=== PATIENT | female | born 1940 | race Caucasian/White ===

== ENCOUNTER 2020-04-28 20:06 | Emergency (ER) | payer MEDICARE, SELFPAY ==
[2020-04-28 20:07] VITALS: BP 166/85; PULSE 80; RESP 20; TEMP 37; O2SAT 97
--- NOTE | 2020-04-28 20:36 | ED.FALL ---
HPI - Fall General Chief Complaint: Fall Stated Complaint: fall History of Present Illness HPI Narrative: Patient presents after falling while walking her dog. She fell forward and scraped her nose. She said it was bleeding. She is more concerned about the lens that fell out of her glasses. She reports no pain. She had no loss of conscious. She cannot remember her last tetanus shot. She does not take any prescription medication. Her surgical history is hysterectomy. She does not smoke cigarettes, drink alcohol, or do drugs. She does not have a PCP. MD complaint: fall Onset (ago): hour(s) Fall from: standing Place fall occurred: street Loss of consciousness: none Symptoms prior to fall: none Context: tripped/slipped Location of injury: face Related Data Allergies Allergy/AdvReac Type Severity Reaction Status Date / Time oxybutynin [From Ditropan] Allergy Unknown Verified 04/28/20 20:10 Review of Systems Review of Systems: Narrative: CONSTITUTIONAL: Denies fever, chills, or sweats. EYES: Denies visual changes, redness, or discharge. ENT: Denies rhinorrhea, congestion, sore throat, or otalgia. CARDIOVASCULAR: Denies chest pain, palpitations, or edema. RESPIRATORY: Denies cough or dyspnea. GASTROINTESTINAL: Denies abdominal pain, nausea, vomiting, or diarrhea. GENITOURINARY: Denies dysuria or hematuria. SKIN: Denies rash or itching. MUSCULOSKELETAL: Denies back pain, joint pain, or myalgia. NEUROLOGIC: Denies headache, numbness, or weakness. PSYCHIATRIC: Denies anxiety or depression. [facility] Surgical History Surgical History History of hysterectomy Social History Social History (Updated 04/28/20 @ 20:38 by Qian Ahn MD) Smoking status: Never smoker Alcohol intake: never Substance use: never Exam Narrative: Exam Narrative: GENERAL: Well-appearing, well-nourished, and in no acute distress. HEAD: Normocephalic, atraumatic. Petechiae on the forehead. EYES: PERRLA and EOMI. ENT: Nares clear, no rhinorrhea or epistaxis. Mucous membranes moist. Triangular piece of skin missing at the bridge of the nose, abrasions on the rest of the nose. NECK: Supple. CHEST: Clear to auscultation. No respiratory distress. HEART: Regular rate and rhythm. No murmur heard. Normal peripheral pulses. ABDOMEN: Soft, nontender, nondistended, normal active bowel sounds. EXTREMITIES: Normal range of motion. No edema. SKIN: Warm, dry, no rash. NEURO: No focal deficits. Alert and oriented x3. PSYCH: Normal mood and affect. Const: General: no acute distress and alert Orientation/consciousness: patient oriented x3 Course Vital Signs Vital signs: Vital Signs Temperature 98.6 F 04/28/20 20:07 Pulse Rate 80 04/28/20 20:07 Respiratory Rate 20 04/28/20 20:07 Blood Pressure 166/85 H 04/28/20 20:07 Pulse Oximetry 97 04/28/20 20:07 Temperature 98.6 F 04/28/20 20:07 Pulse Rate 80 04/28/20 20:07 Respiratory Rate 04/28/20 20:07 Blood Pressure 166/85 H 04/28/20 20:07 Pulse Oximetry 97 04/28/20 20:07 MDM - Fall Medical Records Attestation: I reviewed the patient's medical records. Discharge Plan Discharge Clinical Impression: Bleeding nose Fall Qualifiers: Encounter type: initial encounter Qualified Code(s): W19.XXXA - Unspecified fall, initial encounter Abrasion of face Qualifiers: Encounter type: initial encounter Qualified Code(s): S00.81XA - Abrasion of other part of head, initial encounter Patient Disposition: Home, Self-Care Condition: Stable Follow-up/Referrals: PHYSICIAN,LINTER DRIER OPERATOR [Primary Care Provider] - Natan Martinez MD [Physician] - (Call make a new patient appointment) Time of Disposition: 20:40
--- NOTE | 2020-04-28 20:37 | PC.NURSE ---
CALL RECEIVED FROM PT SON REBECCA. UPDATES GIVEN. CALL SON WHEN PT READY FOR DC AT [phone]
[2020-04-28] MEDS: TETANUS,DIPHTHERIA,AC PERTUSSIS ADULT (0.5 ML) BOOSTRIX IM (20:48)
[2020-04-28 20:50] VITALS: BP 173/83; PULSE 74; RESP 20; O2SAT 98
[2020-04-28 20:56] VITALS: BP 173/83; PULSE 74; RESP 20; O2SAT 98
== END 2020-04-28 21:08 | disposition home or self-care (01) ==
PROVIDERS: Emergency Provider Emergency Medicine
DX: S00.31XA Abrasion of nose, initial encounter (principal); W01.0XXA Fall on same level from slipping, tripping and stumbling without subsequent striking against object, initial encounter; Y93.K1 Activity, walking an animal; Z23 Encounter for immunization
CPT/HCPCS: 90471; 90715; 99282

== ENCOUNTER 2020-07-03 15:41 | Inpatient (IN) | payer MEDICARE, SELFPAY ==
--- NOTE | ~2020-07-03 | CT_ITS ---
EXAMINATION: CT LE LT wo con DATE: 07/03/2020 19:42 INDICATION: Left thigh injury. TECHNIQUE: Computed tomography (CT) of the left femur was performed without intravenous contrast. Aut omated exposure control and iterative reconstruction technique were employed. The dose-length product was 762.99 mGy-cm. COMPARISON: Left femur radiographs 07/03/2020 FINDINGS: Bone alignment is normal. There is a nondisplaced oblique fracture of lateral patella. Ther e is moderate left knee osteoarthritis. There is a small knee joint effusion. There are subcutaneous hematomas in the anterior left thigh. There is a subcutaneous hematoma anterior and lateral to the pa tella. IMPRESSION: 1. Nondisplaced oblique fracture of patella. 2. Subcutaneous hematomas in the anterior thigh. Subcutaneous hematoma anterior and lateral to the pa tella. 3. Moderate left knee osteoarthritis. 4. Small left knee joint effusion. Reviewed, dictated and finalized at location A. IMPRESSION: 1. Nondisplaced oblique fracture of patella. 2. Subcutaneous hematomas in the anterior thigh. Subcutaneous hematoma anterior and lateral to the patella. 3. Moderate left knee osteoarthritis. 4. Small left knee joint effusion.
--- NOTE | ~2020-07-03 | XR_ITS ---
EXAMINATION: XR femur LT min 2V DATE: 07/03/2020 17:43 INDICATION: Left thigh injury. Swelling. TECHNIQUE: 2 views of left femur on 4 radiographs were obtained. COMPARISON: None. FINDINGS: Bone alignment is normal. No fracture. There is mild left hip osteoarthritis. Left knee dem onstrates moderate osteoarthritis of the patellofemoral compartment and mild osteoarthritis of medial and lateral compartments. No knee joint effusion. IMPRESSION: 1. Polyarticular osteoarthritis. Reviewed, dictated and finalized at location A.
--- NOTE | ~2020-07-03 | CT_ITS ---
EXAMINATION: CT brain wo con DATE: 07/03/2020 19:42 INDICATION: Head injury. TECHNIQUE: Computed tomography (CT) of the head was performed without intravenous contrast. The mA wa s adjusted according to patient size. Iterative reconstruction technique was employed. The dose-lengt h product was 605.33 mGy-cm. 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 There are scattered areas of low attenuation in the cerebral wh ite matter. There is no intracranial hemorrhage, acute infarction, or abnormal intracranial mass lesi on. There is ex vacuo dilatation of frontal horn of left lateral ventricle. The orbits are normal. Th ere is mild mucosal thickening in the ethmoid sinuses. The mastoid air cells are normal. IMPRESSION: 1. 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 2. Mild nonspecific cerebral white matter disease, which likely represents chronic small vessel ische nithya disease. Reviewed, dictated and finalized at location A. IMPRESSION: 1. 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 2. 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
[2020-07-03 16:45] VITALS: BP 175/91; PULSE 74; RESP 18; TEMP 36.6; O2SAT 99
[2020-07-03 18:02] VITALS: BP 166/94; PULSE 72; RESP 14; O2SAT 97
--- NOTE | 2020-07-03 18:59 | ED.FALL ---
HPI - Fall General Chief Complaint: Fall Stated Complaint: FALL AFTER TRIPPING ON ROCKS Time Seen by Provider: 07/03/20 18:58 Source: patient Mode of arrival: ambulatory Limitations: no limitations History of Present Illness HPI Narrative: Patient is a 79-year-old female who presents for evaluation of left leg pain after a fall. Patient states that she fell earlier today, tripping over some rocks. Patient fell onto her left side. She presents for evaluation of left leg swelling to the thigh and knee. She is able to move it, she does endorse some pain that is dull, aching in nature. Mild bruising and swelling that is present. She denies any numbness. No severe pain. She denies hip pain. Patient denies hitting her head but does have an abrasion to her nasal bridge. She denies any neck pain or vision changes. Patient denies any chest pain, palpitations, lightheadedness prior to the fall. Patient denies anticoagulation. Related Data Home Medications Medication Instructions Recorded Confirmed No Home Medications 07/03/20 07/03/20 Allergies Allergy/AdvReac Type Severity Reaction Status Date / Time oxybutynin [From Ditropan] Allergy Unknown Verified 07/03/20 18:03 Review of Systems Review of Systems: Narrative: CONSTITUTIONAL: Denies fever, chills, or sweats. EYES: Denies visual changes ENT: Denies rhinorrhea, congestion CARDIOVASCULAR: Denies chest pain, palpitations, reports left leg swelling and pain RESPIRATORY: Denies cough or dyspnea. GASTROINTESTINAL: Denies abdominal pain, nausea SKIN: Denies rash or itching. Reports swelling and bruising to left leg. MUSCULOSKELETAL: Denies back pain, reports left thigh pain NEUROLOGIC: Denies headache, numbness, or weakness. [facility] Surgical History Surgical History History of hysterectomy Social History Social History Smoking status: Never smoker Alcohol intake: never Substance use: never Gender identity (if verbalized by the patient): Female Exam Narrative: Exam Narrative: GENERAL: Awake, alert, conversant HEAD: Normocephalic, abrasion to nasal bridge EYES: 2+ PERRLA and EOMI. ENT: Nares clear, no rhinorrhea or epistaxis. Mucous membranes moist. NECK: Supple. No cervical spine tenderness. No midline step-offs or deformities. CHEST: No respiratory distress, breathing even and non labored. No chest wall tenderness or crepitus. No ecchymoses. HEART: Regular rate, sinus rhythm ABDOMEN:Non distended, non tender EXTREMITIES: Decreased range of motion of the left lower extremity due to edema, ecchymosis especially in the anterior compartment of the left thigh. Ecchymosis overlying the left knee. Patient has some active flexion at the left knee but this is limited due to pain and edema. Intact sensation distally. DP pulse 2+. SKIN: Warm, dry NEURO:No focal deficits. Alert and oriented x3 Course Vital Signs Vital signs: Vital Signs Temperature 36.6 C 07/03/20 16:45 Pulse Rate 74 07/03/20 16:45 Respiratory Rate 18 07/03/20 16:45 Blood Pressure 175/91 H 07/03/20 16:45 Pulse Oximetry 99 07/03/20 16:45 Temperature 36.6 C 07/03/20 16:45 Pulse Rate 72 07/03/20 18:02 Respiratory Rate 14 07/03/20 18:02 Blood Pressure 178/88 H 07/03/20 20:36 Pulse Oximetry 97 07/03/20 18:02 Procedures Other Procedure Procedure 1: Other Procedure: Compartment measurement, left anterior thigh Left anterior thigh compartment was prepped in a sterile fashion, and [place] kit was utilized to evaluate compartment pressure. Left anterior thigh compartment measures at 74. No brisk bleeding from the site. Minimal pain. No anesthetic was utilized after shared decision-making with patient. Patient tolerated procedure well without any complications. A dressing was applied to the site. MDM - Fall MDM Narrative Medical decision glenis
[2020-07-03 19:33] LABS: Basophils Percent Auto 0.4 % (0.2-1.2); Eosinophils Absolute Auto 0.2 K/mm3 (0-0.3); Hematocrit 41.1 % (37.0-47.0); Hemoglobin 13.6 g/dL (12.0-15.0); Immature Granulocyte Absolute 0.03 K/mm3 (0.00-0.031); Immature Granulocyte Percent A 0.4 % (0-0.5); Lymphocytes Absolute Auto 1.49 K/mm3 (0.9-3.2); Lymphocytes Percent Auto 17.5 % (18.3-44.2); Mean Corpuscular HGB Conc 33.1 g/dl (32-36); Mean Corpuscular Hemoglobin 30.4 pg (26-34); Mean Corpuscular Volume 91.9 fl (80-100); Mean Platelet Volume 11.7 fl (7.4-10.4); Monocytes Absolute Auto 0.9 K/mm3 (0.1-0.6); Neutrophils Absolute Auto 5.9 K/mm3 (1.3-6.7); Neutrophils Percent Auto 68.7 % (45.5-73.1); Platelet Count Result 208 k/mm3 (150-375); Red Blood Count 4.47 M/mm3 (4.2-5.4); Red Cell Distribution Width 13.7 % (11.5-14.5); White Blood Count 8.5 K/mm3 (4.5-10.0)
[2020-07-03 19:42] LABS: Prothrombin Time 12.8 Seconds (11.1-14.7)
[2020-07-03 19:52] LABS: Anion Gap 6 mmol/L (8-16); Blood Urea Nitrogen 17 mg/dL (7-17); Calcium 9.3 mg/dL (8.4-10.2); Carbon Dioxide 28 mmol/L (22-30); Chloride 104 mmol/L (98-107); Creatine Kinase 62 U/L (30-135); Estimated CRCL calculation 38 ml/min; Estimated Glomerular Filt Rate 54; Glucose 116 mg/dL (65-105); Potassium 4.4 mmol/L (3.4-5.0); Sodium 138 mmol/L (137-145)
[2020-07-03 20:36] VITALS: BP 178/88
[2020-07-03 21:33] VITALS: BP 168/83; PULSE 68; RESP 16; O2SAT 98
[2020-07-03] MEDS: TETANUS,DIPHTHERIA,AC PERTUSSIS ADULT (0.5 ML) BOOSTRIX IM (21:34)
[2020-07-03 21:56] VITALS: BP 189/93; PULSE 74; RESP 16; TEMP 36.6; O2SAT 100; BMI 29.5
[2020-07-03] MEDS: SODIUM CHLORIDE 0.9% IV 1,000 ML 125 ML IV CONT (21:57)
[2020-07-03 22:00] VITALS: BP 189/93; PULSE 74; RESP 16; TEMP 36.6; O2SAT 100
--- NOTE | 2020-07-03 22:53 | PC.NURSE ---
This patient, Dominique Lee, was admitted to 2 Medical Room 260-. Patient/family oriented to hospital policies and general routines including ID bracelet, bed and alarms, visiting hours, pain management, procedures, bathroom and other care routines, personal items, smoking policy, room service/diet, and visiting hours. Valuables list has been completed. Information on how to activate the Rapid Response Team has been discussed. Patient/Family are encouraged to report perceived risks to care and to ask questions if they do not understand what they are told or what they should do.
[2020-07-04 05:36] LABS: Basophils Percent Auto 0.6 % (0.2-1.2); Eosinophils Absolute Auto 0.2 K/mm3 (0-0.3); Eosinophils Percent Auto 2.4 % (0-4.4); Hematocrit 35.9 % (37.0-47.0); Hemoglobin 11.8 g/dL (12.0-15.0); Immature Granulocyte Absolute 0.03 K/mm3 (0.00-0.031); Immature Granulocyte Percent A 0.4 % (0-0.5); Lymphocytes Absolute Auto 1.82 K/mm3 (0.9-3.2); Lymphocytes Percent Auto 25.7 % (18.3-44.2); Mean Corpuscular HGB Conc 32.9 g/dl (32-36); Mean Corpuscular Volume 91.3 fl (80-100); Mean Platelet Volume 11.5 fl (7.4-10.4); Monocytes Absolute Auto 1.1 K/mm3 (0.1-0.6); Monocytes Percent Auto 15.8 % (2.6-8.5); Neutrophils Absolute Auto 3.9 K/mm3 (1.3-6.7); Neutrophils Percent Auto 55.1 % (45.5-73.1); Platelet Count Result 187 k/mm3 (150-375); Red Blood Count 3.93 M/mm3 (4.2-5.4); Red Cell Distribution Width 13.5 % (11.5-14.5); White Blood Count 7.1 K/mm3 (4.5-10.0)
[2020-07-04 05:46] VITALS: BP 174/69; PULSE 73; RESP 18; TEMP 36.6; O2SAT 96
--- NOTE | 2020-07-04 07:05 | PM.IMHP ---
H&P: HPI History of Present Illness Date/Time: 07/04/20 07:05 Chief complaint: Left anterior thigh compartment syndrome Narrative: Dominique Lee is a 79 year old female Who fell onto her left knee yesterday at her assisted living facility. She had a mild abrasion on the front of the knee. She had pain with weight-bearing and was noted to have swelling in the thigh. She is brought to the emergency room. Initial radiographs were negative. Due to the amount of swelling she had a CT scan which showed anterior thigh hematoma as well as a nondisplaced transverse fracture of the patella. Due to the swelling compartment pressure was evaluated in the emergency room. Her vital signs were noted to be stable and she was relatively comfortable with minimal pain medication. She was admitted for further observation given the amount of swelling. Overnight she has been comfortable. She has slept soundly most of the night per the nurse's report. She was seen and examined this morning at 6:30 a.m.. She complains of pain left leg but otherwise appears alert and oriented and comfortable. She denies any other injury at the time of her fall. She denies numbness or tingling in left lower extremity. She denies any prior problems with her knee. She is a full-time resident at a memory care assisted living facility. She has a son who lives nearby. Review of Systems Constitutional: Constitutional: Denies fever(s) Eyes: Eyes: Denies blurry vision ENT: Reports Normal hearing present Cardiovascular: Cardiovascular: Denies chest pain and Denies dyspnea Respiratory: Respiratory: Denies dyspnea and Denies wheezing Gastrointestinal: Gastrointestinal: Denies abdominal pain Genitourinary: Genitourinary: Denies urinary urgency Musculoskeletal: Musculoskeletal: Reports as per HPI and Denies numbness Integumentary/Breasts: Skin/Breast: Denies changing lesions and Denies sores Neurologic: Reports Normal hearing present, Denies behavioral changes, Denies confusion, Denies numbness and Denies convulsions Psychiatric: Psychiatric: Denies behavioral changes, Denies confusion and Denies hallucinations Endocrine: Endocrine: Denies heat intolerance Hematologic/Lymphatic: Hematologic/Lymphatic: Denies easy bleeding Allergic/Immunologic: Allergic/Immunologic: Denies wheezing PMFSH Surgical History Surgical History History of hysterectomy Social History Social History Smoking status: Never smoker Alcohol intake: never Substance use: never Gender identity (if verbalized by the patient): Female Spiritual care concerns: No Meds Home Medications and Allergies Allergies Allergy/AdvReac Type Severity Reaction Status Date / Time oxybutynin [From Ditropan] Allergy Unknown Verified 07/03/20 18:03 Vital Signs Vital Signs - 24 hr 07/03/20 16:45 07/03/20 18:02 07/03/20 20:36 Temperature 97.8 F Pulse Rate 74 72 Respiratory Rate 18 14 Blood Pressure 175/91 H 166/94 H 178/88 H Pulse Oximetry 99 97 07/03/20 21:33 07/03/20 21:56 07/03/20 22:00 Temperature 97.9 F 97.9 F Pulse Rate 68 74 74 Respiratory Rate 16 16 16 Blood Pressure 168/83 H 189/93 H 189/93 H Pulse Oximetry 98 100 100 07/04/20 05:46 Temperature 97.8 F Pulse Rate 73 Respiratory Rate 18 Blood Pressure 174/69 H Pulse Oximetry 96 Exam Const: General: healthy appearing; No in distress or confusion Orientation/consciousness: oriented to person, oriented to place, oriented to time and No confusion HENMT: Head: normal to inspection, normocephalic and atraumatic Eyes: Conjunctivae: conjunctivae normal Sclera: sclerae normal Neck: Neck: supple and nontender Resp: Effort & Inspection: normal respiratory effort and no audible wheezes Cardio: Rate: regular rate Rhythm: regular rhythm Skin: General skin exam: no rashes or lesions noted Neuro:
--- NOTE | 2020-07-04 07:43 | PC.NURSE ---
C[facility] [place] contacted- will send an updated medication list
[2020-07-04] MEDS: ACETAMINOPHEN 325 MG TABLET 650 MG PO ×2 (10:30→15:39)
[2020-07-04 14:00] VITALS: BP 160/79; PULSE 73; RESP 17; TEMP 36.9; O2SAT 100
[2020-07-04] MEDS: SOLIFENACIN 5 MG TABLET PO (18:49)
[2020-07-04] MEDS: MIRABEGRON 50 MG ER TABLET PO (18:49)
[2020-07-04 22:00] VITALS: BP 150/86; PULSE 78; RESP 18; TEMP 36.3; O2SAT 100
[2020-07-05] MEDS: ONDANSETRON INJ 4 MG/2 ML VIAL IV PUSH (05:17)
[2020-07-05 05:54] VITALS: BP 155/67; PULSE 55; RESP 20; TEMP 36.6; O2SAT 100
--- NOTE | 2020-07-05 07:45 | PM.PNORT ---
Progress Note: A&P Assessment and Plan (1) Compartment syndrome of left lower extremity: Qualifiers: Encounter type: initial encounter Qualified Code(s): T79.A22A - Traumatic compartment syndrome of left lower extremity, initial encounter Code(s): T79.A22A - Traumatic compartment syndrome of left lower extremity, initial encounter Status: Acute Assessment and Plan: Still with significant swelling. Edema control Continue to monitor thigh for possible surgical need (2) Fracture, patella: Qualifiers: Encounter type: initial encounter Fracture alignment: nondisplaced Fracture morphology: transverse Fracture type: closed Laterality: left Qualified Code(s): S82.035A - Nondisplaced transverse fracture of left patella, initial encounter for closed fracture Code(s): S82.009A - Unspecified fracture of unspecified patella, initial encounter for closed fracture Status: Acute Assessment and Plan: PT/OT, protected weight Knee immobilizer when up. Subjective Subjective Date/Time Seen: 07/05/20 07:45 awake and alert. LT thigh pain Exam Const: General: healthy appearing; No in distress or confusion Orientation/consciousness: oriented to person, oriented to place, oriented to time and No confusion HENMT: Head: normal to inspection, normocephalic and atraumatic Eyes: Conjunctivae: conjunctivae normal Sclera: sclerae normal Neck: Neck: supple and nontender Resp: Effort & Inspection: normal respiratory effort and no audible wheezes Cardio: Rate: regular rate Rhythm: regular rhythm Skin: General skin exam: no rashes or lesions noted Neuro: General: oriented to person, oriented to place, oriented to time and No confusion Extrem: Right upper extremity: normal to inspection Left upper extremity: normal to inspection Left lower extremity: hip/thigh, knee, ankle and foot Psych: Affect: normal affect Objective Data Vital Signs Vital Signs: Vital Signs - 24 hr 07/04/20 14:00 07/04/20 22:00 07/05/20 05:54 Temperature 98.5 F 97.3 F L 97.8 F Pulse Rate 73 78 55 L Respiratory Rate 17 18 20 Blood Pressure 160/79 H 150/86 H 155/67 H Pulse Oximetry 100 100 100 Intake/Output Intake/Output: Intake & Output 07/02/20 07/03/20 07/04/20 07/05/20 23:59 23:59 23:59 23:59 Intake Total 1350 120 Output Total 300 850 Balance 1050 -730 Meds/Results Medications: Active Medications Generic Name Dose Route Start Last Admin Trade Name Freq PRN Reason Stop Dose Admin Acetaminophen 650 mg 07/03/20 20:36 07/04/20 15:39 Tylenol Tablet PO 650 mg Q4H PRN Administration Mild Pain (1-3) or Fever Aspirin 81 mg 07/05/20 09:00 Aspirin Chewable PO DAILY [facility] Atorvastatin Calcium 20 mg 07/05/20 09:00 Lipitor PO DAILY [facility] Duloxetine HCl 90 mg 07/05/20 09:00 Cymbalta PO DAILY [facility] Hydralazine HCl 5 mg 07/04/20 18:01 Apresoline Tablet PO TID PRN systolic BP greater than 160 Mirabegron 50 mg 07/04/20 18:25 07/04/20 18:49 Myrbetriq PO 50 mg DAILY@1600 LUIS M Administration Ondansetron HCl 4 mg 07/03/20 20:36 07/05/20 05:17 Zofran Inj IV PUSH 4 mg Q4H PRN Administration Nausea Solifenacin 5 mg 07/04/20 18:05 07/04/20 18:49 Vesicare PO 5 mg DAILY@1600 LUIS M Administration Radiology Results: ITS Impressions Femur X-Ray 07/03/20 17:44 IMPRESSION: 1. Polyarticular osteoarthritis. Head CT 07/03/20 19:42 IMPRESSION: 1. 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 2. Mild nonspecific cerebral white matter disease, which likely represents chronic small vessel ischemic disease. Lower Extremity CT 07/03/20 19:45 IMPRESSION: 1. Nondisplaced oblique fracture of patella. 2. Subcutaneous hematomas in the anterior thigh. Subcutaneous hematoma anterior and lateral to the patella. 3. Mode
[2020-07-05] MEDS: ASPIRIN 81 MG CHEWABLE TABLET PO (08:25)
[2020-07-05] MEDS: DULoxetine HCL 30 MG CAPSULE.DR 90 MG PO (08:26)
[2020-07-05] MEDS: ATORVASTATIN 20 MG TABLET PO (08:26)
[2020-07-05] MEDS: ACETAMINOPHEN 325 MG TABLET 650 MG PO (11:18)
[2020-07-05 14:00] VITALS: BP 165/76; PULSE 84; RESP 16; TEMP 36.9; O2SAT 95
[2020-07-05] MEDS: hydrALAZINE 5 MG TABLET PO (14:40)
[2020-07-05] MEDS: MIRABEGRON 50 MG ER TABLET PO (16:55)
[2020-07-05] MEDS: SOLIFENACIN 5 MG TABLET PO (16:55)
[2020-07-05 20:00] VITALS: PULSE 83; RESP 16; O2SAT 97
[2020-07-05 21:44] VITALS: BP 187/84; PULSE 83; RESP 16; TEMP 36.7; O2SAT 97
[2020-07-06 06:00] VITALS: BP 167/72; PULSE 81; RESP 16; TEMP 36.9; O2SAT 94
[2020-07-06] MEDS: ATORVASTATIN 20 MG TABLET PO (08:10)
[2020-07-06] MEDS: ASPIRIN 81 MG CHEWABLE TABLET PO (08:10)
[2020-07-06] MEDS: DULoxetine HCL 30 MG CAPSULE.DR 90 MG PO (08:10)
--- NOTE | 2020-07-06 08:40 | PM.PNORT ---
Progress Note: A&P Assessment and Plan (1) Compartment syndrome of left lower extremity: Qualifiers: Encounter type: initial encounter Qualified Code(s): T79.A22A - Traumatic compartment syndrome of left lower extremity, initial encounter Code(s): T79.A22A - Traumatic compartment syndrome of left lower extremity, initial encounter Status: Acute Assessment and Plan: Swelling stable. Edema control Continue to monitor thigh for possible surgical need (2) Fracture, patella: Qualifiers: Encounter type: initial encounter Fracture alignment: nondisplaced Fracture morphology: transverse Fracture type: closed Laterality: left Qualified Code(s): S82.035A - Nondisplaced transverse fracture of left patella, initial encounter for closed fracture Code(s): S82.009A - Unspecified fracture of unspecified patella, initial encounter for closed fracture Status: Acute Assessment and Plan: PT/OT, protected weight Knee immobilizer when up. (3) Hypertension: Code(s): I10 - Essential (primary) hypertension Status: Acute Assessment and Plan: Elevated systolic pressure since the emergency room. Started on antihypertensive medication, hydralazine. Mild improvement noted. Plan to contact primary care for provider, for further treatment and follow-up. (4) Urinary hesitancy: Code(s): R39.11 - Hesitancy of micturition Status: Acute Assessment and Plan: Unable to void yesterday. Elevated residual volume on bladder scan. Leone catheter placed with good output. We will remove Leone catheter and attempt voiding trial today. Subjective Subjective Date/Time Seen: 07/06/20 08:40 Patient awake oriented to self. Moderate pain left thigh. unable to void yesterday. Review of Systems Constitutional: Constitutional: Denies fever(s) Eyes: Eyes: Denies blurry vision ENT: Reports Normal hearing present Cardiovascular: Cardiovascular: Denies chest pain and Denies dyspnea Respiratory: Respiratory: Denies dyspnea and Denies wheezing Gastrointestinal: Gastrointestinal: Denies abdominal pain Genitourinary: Genitourinary: Denies urinary urgency Musculoskeletal: Musculoskeletal: Reports as per HPI and Denies numbness Integumentary/Breasts: Skin/Breast: Denies changing lesions and Denies sores Neurologic: Reports Normal hearing present, Denies behavioral changes, Denies confusion, Denies numbness and Denies convulsions Psychiatric: Psychiatric: Denies behavioral changes, Denies confusion and Denies hallucinations Endocrine: Endocrine: Denies heat intolerance Hematologic/Lymphatic: Hematologic/Lymphatic: Denies easy bleeding Allergic/Immunologic: Allergic/Immunologic: Denies wheezing Exam Const: General: healthy appearing; No in distress or confusion Orientation/consciousness: oriented to person, oriented to place, oriented to time and No confusion HENMT: Head: normal to inspection, normocephalic and atraumatic Eyes: Conjunctivae: conjunctivae normal Sclera: sclerae normal Neck: Neck: supple and nontender Resp: Effort & Inspection: normal respiratory effort and no audible wheezes Cardio: Rate: regular rate Rhythm: regular rhythm Skin: General skin exam: no rashes or lesions noted Neuro: General: oriented to person, oriented to place, oriented to time and No confusion Extrem: Right upper extremity: normal to inspection Left upper extremity: normal to inspection Left lower extremity: hip/thigh, knee, ankle and foot Other: Left thigh swelling unchanged. Moderately tender to palpation. Able to actively extend the knee. Able to actively straight leg raise. Distally neurovascular intact. Increased ecchymosis anterior thigh. Psych: Affect: normal affect Objective Data Vital Signs Vital Signs: Vital Signs - 24 hr 07/05/20 14:00 07/05/20 20:00 07/05/20 21:44 Temperature 98.4 F 98.0 F Pulse Rate 84 83 83
--- NOTE | 2020-07-06 09:37 | PC.NURSE ---
Addendum entered by Britni Howe RN 07/06/20 09:45: Gave information to Mildred STERN who is going to check in with Dr. Jackson and if there is a doctor that will be following her care at [facility] and then she will call back with any updates. Original Note: Called Dr. Jackson's office in regards to the patients high blood pressure status and making sure that the doctor is aware and will continue to follow up with her and provide appropriate medications. Gave information Mildred
--- NOTE | 2020-07-06 11:18 | PC.NURSE ---
Called Dr. Adams's office and spoke to Halie in regards to the patient pulling out her IV and whether he wanted it to be replaced at this time. Per Halie Adams does not wish for the IV to be replaced at this time.
[2020-07-06 12:28] LABS: SARS-CoV-2 RNA PCR Negative
[2020-07-06 14:00] VITALS: BP 165/107; PULSE 77; RESP 14; TEMP 37.1; O2SAT 98
[2020-07-06] MEDS: hydrALAZINE 5 MG TABLET PO (14:31)
[2020-07-06 16:00] VITALS: BP 149/68
[2020-07-06] MEDS: MIRABEGRON 50 MG ER TABLET PO (16:30)
[2020-07-06] MEDS: SOLIFENACIN 5 MG TABLET PO (16:30)
--- NOTE | 2020-07-06 19:33 | PM.IMCN ---
Assessment and Plan Assessment and plan (1) Acute urinary retention: Code(s): R33.8 - Other retention of urine Status: Acute Assessment and Plan: likely secondary to Myrbetriq and VESIcare use. Will hold these medications. Continue Leone catheter. Will check a UA to rule out any underlying the infection that could exacerbate retention symptoms. (2) Hypertension: Code(s): I10 - Essential (primary) hypertension Status: Acute Assessment and Plan: The patient does have a distant history of essential hypertension with prior antihypertensive use but she has not been on antihypertensives in many years. Given that the patient has been having some intermittent mild bradycardia will not initiate a beta-priscilla therapy. She does not have any evidence of acute renal insufficiency at this time but I would like to hold off on initiating any JAMILA-inhibitor or angiotensin receptor priscilla therapy as 1st line. A BMP has been ordered for a.m.. Instead of will start the patient on Norvasc 5 mg daily. Will discontinue scheduled hydralazine. Hydralazine will still be a available as p.r.n. for systolic blood pressures greater than 160. (3) Compartment syndrome of left lower extremity: Qualifiers: Encounter type: initial encounter Qualified Code(s): T79.A22A - Traumatic compartment syndrome of left lower extremity, initial encounter Code(s): T79.A22A - Traumatic compartment syndrome of left lower extremity, initial encounter Status: Acute Assessment and Plan: Management per primary service. Will check a CBC to monitor the patient's hemoglobin given her hematoma and recent fall. HPI Data of Consult Consult date: 07/06/20 Requesting Physician: Liam Adams MD Primary Care Provider: Hi Jackson, DO Consult Narrative Narrative: Dominique Lee is a 79 year old female With a past medical history of urge urinary incontinence and dementia who presented to the ER after having fallen in injuring her leg. The patient presented to the ER on 07/03/2020 for left leg pain. The patient had evidently been out walking her dog at [facility] living when she either tripped on some rocks or stopped walking and her dog thin pulled her off her feet. She presented to the ER with swelling to her thigh and knee. The patient reported some dull pain as aching in nature at time. She denies any pain currently and has an immobilizer in place on her left leg. Imaging demonstrated a nondisplaced oblique fracture of the patella and a subcutaneous hematoma in the anterior thigh as well as a hematoma anterior and lateral to the patella. In the ER the patient had elevated compartment pressures in the patient was admitted to the orthopedic surgery service for evaluation. The patient refused surgical intervention for hematoma and her patellar fracture. There proceeding with conservative management with immobilizer in place. Of note the patient was hypertensive while she was in the ER. She was initially placed on p.r.n. p.o. hydralazine in this had been transitioned to scheduled p.o. hydralazine. The patient's blood pressures have improved with her blood pressure at the time of my evaluation of 136/58. She is not on any antihypertensives at home. She has had some mild intermittent asymptomatic bradycardia with heart rates in the mid 50s. The patient had initially had a Leone catheter in place from the ER . Her Leone catheter had been removed but she failed her voiding trial and was retaining urine again. The patient is on Myrbetriq and VESIcare at home. Unfortunately these medications have been continued which is likely contributing to her urinary retention. She denies any dysuria, changes in urinary frequency or hematuria. However the patient is somewhat unreliable historian. As she also denied symptoms of urinary retention. The patient is mildly confused at the time of my evalua
[2020-07-06 20:29] VITALS: BP 136/58; PULSE 83; RESP 16; TEMP 36.6; O2SAT 95
[2020-07-07 01:21] LABS: Add Urine Microscopic? YES; Appearance Urine Clear (Clear); Bilirubin Urine Negative (Negative); Blood Urine 1+ (Negative); Color Urine Straw (Yellow); Glucose Urine UA Negative (Negative); Ketones Urine Negative (Negative); Leukocyte Esterase Ur Trace LEU/UL (Negative); Nitrate Urine Negative (Negative); Protein Urine Negative (Negative); Specific Grav Ur 1.011 (1.001-1.035); Squamous Epithelial Cell Urine Rare /hpf (Few); Urobilinogen Urine Negative mg/dL (<2.0)
[2020-07-07 05:28] VITALS: BP 162/84; PULSE 75; RESP 16; TEMP 36.6; O2SAT 91
[2020-07-07 05:58] LABS: Anion Gap 6 mmol/L (8-16); Blood Urea Nitrogen 17 mg/dL (7-17); Calcium 9.4 mg/dL (8.4-10.2); Carbon Dioxide 28 mmol/L (22-30); Chloride 104 mmol/L (98-107); Estimated CRCL calculation 39 ml/min; Estimated Glomerular Filt Rate > 60; Glucose 104 mg/dL (65-105); Sodium 138 mmol/L (137-145)
[2020-07-07 06:07] LABS: Hematocrit 33.1 % (37.0-47.0); Hemoglobin 11.1 g/dL (12.0-15.0); Mean Corpuscular HGB Conc 33.5 g/dl (32-36); Mean Corpuscular Hemoglobin 30.7 pg (26-34); Mean Corpuscular Volume 91.4 fl (80-100); Mean Platelet Volume 12.3 fl (7.4-10.4); Platelet Count Result 188 k/mm3 (150-375); Red Blood Count 3.62 M/mm3 (4.2-5.4); Red Cell Distribution Width 13.3 % (11.5-14.5); White Blood Count 7.1 K/mm3 (4.5-10.0)
--- NOTE | 2020-07-07 08:17 | PM.PNORT ---
Progress Note: A&P Assessment and Plan (1) Compartment syndrome of left lower extremity: Qualifiers: Encounter type: initial encounter Qualified Code(s): T79.A22A - Traumatic compartment syndrome of left lower extremity, initial encounter Code(s): T79.A22A - Traumatic compartment syndrome of left lower extremity, initial encounter Status: Acute Assessment and Plan: Swelling stable. Edema control Continue to monitor thigh for possible surgical need (2) Fracture, patella: Qualifiers: Encounter type: initial encounter Fracture alignment: nondisplaced Fracture morphology: transverse Fracture type: closed Laterality: left Qualified Code(s): S82.035A - Nondisplaced transverse fracture of left patella, initial encounter for closed fracture Code(s): S82.009A - Unspecified fracture of unspecified patella, initial encounter for closed fracture Status: Acute Assessment and Plan: PT/OT, protected weight Knee immobilizer when up. (3) Hypertension: Code(s): I10 - Essential (primary) hypertension Status: Acute Assessment and Plan: unable to reach yesterday. Appreciate hospitalist consult. Started on antihypertensive medication. (4) Urinary hesitancy: Code(s): R39.11 - Hesitancy of micturition Status: Acute Assessment and Plan: Unable to void yesterday. Elevated residual volume on bladder scan. Leone catheter replaced Yesterday due to inability to void. urinalysis obtained. Appreciate hospitalist consultation. Subjective Subjective Date/Time Seen: 07/07/20 08:17 patient confused this morning. Oriented to self only. Left thigh pain about the same. Leone replaced yesterday Due to inability to void. Exam Const: General: healthy appearing and confusion; No in distress Orientation/consciousness: oriented to person, No oriented to place, No oriented to time and confusion HENMT: Head: normal to inspection, normocephalic and atraumatic Eyes: Conjunctivae: conjunctivae normal Sclera: sclerae normal Neck: Neck: supple and nontender Resp: Effort & Inspection: normal respiratory effort and no audible wheezes Cardio: Rate: regular rate Rhythm: regular rhythm Skin: General skin exam: no rashes or lesions noted Neuro: General: oriented to person, No oriented to place, No oriented to time and confusion Extrem: Right upper extremity: normal to inspection Left upper extremity: normal to inspection Right lower extremity: ankle Details: normal ROM ( able to flex and extend ankle) and foot Details: vascular exam Details: dorsalis pedis pulse present and normal capillary refill and motor-sensory exam Details: light-touch normal Location: in all toes Left lower extremity: hip/thigh Details: abnormal to inspection ( swelling anterior thigh), tenderness Location: of the mid upper leg Location: anteriorly and swelling ( moderate) Location: other ( anterior leg), knee Details: abnormal ROM Details: pain with active ROM Details: with flexion and pain with passive ROM Details: with flexion, ankle Details: normal ROM ( able to flex and extend ankle) and foot Details: normal capillary refill, normal to inspection, toes with normal ROM, vascular exam Details: dorsalis pedis pulse present and normal capillary refill and motor-sensory exam light-touch normal in all toes; no tenderness Other: Left thigh swelling unchanged. Moderately tender to palpation. Able to actively extend the knee. Able to actively straight leg raise. Distally neurovascular intact. Ecchymosis anterior thigh. Psych: Affect: normal affect Objective Data Vital Signs Vital Signs: Vital Signs - 24 hr 07/06/20 14:00 07/06/20 16:00 07/06/20 20:29 Temperature 98.7 F 97.8 F Pulse Rate 77 83 Respiratory Rate 14 16 Blood Pressure 165/107 H 149/68 H 136/58 L Pulse Oximetry 98 95 07/07/20 05:28 Temperature 97.8 F Pulse Rate 75 Respiratory Rate 16 Blo
[2020-07-07] MEDS: ASPIRIN 81 MG CHEWABLE TABLET PO (09:01)
[2020-07-07] MEDS: ATORVASTATIN 20 MG TABLET PO (09:01)
[2020-07-07] MEDS: DULoxetine HCL 30 MG CAPSULE.DR 90 MG PO (09:01)
[2020-07-07] MEDS: amLODIPine BESYLATE 5 MG TABLET PO (09:02)
[2020-07-07] MEDS: polyethylene glycoL 3350 17 GM POWD.PACK PO (12:37)
--- NOTE | 2020-07-07 12:42 | PM.IMPN ---
Progress Note: A&P Assessment and Plan (1) Acute urinary retention: Code(s): R33.8 - Other retention of urine Status: Acute Assessment and Plan: ----- likely secondary to Myrbetriq and VESIcare use. Will hold these medications. She is also constipated so that can worsen it. Continue Leone catheter and plan to do voiding trial tomorrow. Out of bed as much as possible. UA not suspicious for UTI, no tx indicated at this time. (2) Hypertension: Code(s): I10 - Essential (primary) hypertension Status: Acute Assessment and Plan: -----The patient does have a distant history of essential hypertension with prior antihypertensive use but she has not been on antihypertensives in many years. Probably worse d/t pain. Meds changed to 5mg norvasc. If she continues to run high I may increase this but would prefer not to increase it right away. Continue hydralazine PRN as well. (3) Compartment syndrome of left lower extremity: Qualifiers: Encounter type: initial encounter Qualified Code(s): T79.A22A - Traumatic compartment syndrome of left lower extremity, initial encounter Code(s): T79.A22A - Traumatic compartment syndrome of left lower extremity, initial encounter Status: Acute Assessment and Plan: -----Management per primary service. hgb stable Time Spent With Patient Time with patient: 25 - 35 minutes Subjective Date/time seen: 07/07/20 12:42 Interval history: Pt is a 79-year-old female being seen for urinary retention. Patient states she is still having pain of the knee and has complaints of constipation. She can't remember the last time she had a bowel movement and she feels more bloated. She is not passing gas but is not having any nausea or vomiting at this time. Pt denies chills, diarrhea, chest pain, sob, or abdominal pain. Review of Systems Review of Systems: All systems reviewed & are unremarkable except as noted in HPI and below Exam Narrative: Exam Narrative: General: Well developed well nourished patient resting comfortably in bed in no acute distress HEENT: normocephalic Neck: supple Neuro: sensation intact to the left lower extremity CV:RRR with slight murmur in right second ICS Resp:CTA Abd: Soft, mildly distended. No pain to palpation. Positive bowel sounds Extremities: swelling to the left knee in the brace. Distal pulses intact and heard with doppler. Objective Data Vital Signs Vital Signs: Vital Signs - 24 hr 07/06/20 14:00 07/06/20 16:00 07/06/20 20:29 Temperature 98.7 F 97.8 F Pulse Rate 77 83 Respiratory Rate 14 16 Blood Pressure 165/107 H 149/68 H 136/58 L Pulse Oximetry 98 95 07/07/20 05:28 Temperature 97.8 F Pulse Rate 75 Respiratory Rate 16 Blood Pressure 162/84 H Pulse Oximetry 91 Intake/Output Intake/Output: Intake & Output 07/04/20 07/05/20 07/06/20 07/07/20 23:59 23:59 23:59 23:59 Intake Total 1375 063 3893 170 Output Total 300 1200 1400 1300 Balance 2498 -824 -009 -0555 Meds/Results Medications: Active Medications Generic Name Dose Route Start Last Admin Trade Name Freq PRN Reason Stop Dose Admin Acetaminophen 650 mg 07/03/20 20:36 07/05/20 11:18 Tylenol Tablet PO 650 mg Q4H PRN Administration Mild Pain (1-3) or Fever Amlodipine Besylate 5 mg 07/07/20 09:00 07/07/20 09:02 Norvasc PO 5 mg QAM LUIS M Administration Aspirin 81 mg 07/05/20 09:00 07/07/20 09:01 Aspirin Chewable PO 81 mg DAILY LUIS M Administration Atorvastatin Calcium 20 mg 07/05/20 09:00 07/07/20 09:01 Lipitor PO 20 mg DAILY LUIS M Administration Duloxetine HCl 90 mg 07/05/20 09:00 07/07/20 09:01 Cymbalta PO 90 mg DAILY LUIS M Administration Hydralazine HCl 5 mg 07/06/20 21:32 Apresoline Tablet PO TID PRN SBP greater than 160 Magnesium Hydroxide 30 ml 07/07/20 12:21 Milk Of Magnesia PO QAM PRN constipation Ondansetron HCl
[2020-07-07 13:30] VITALS: BP 139/58; PULSE 80; RESP 21; TEMP 36.9; O2SAT 95
[2020-07-07] MEDS: MAGNESIUM HYDROXIDE SUSP 30 ML UDC PO (16:21)
[2020-07-07 20:51] VITALS: BP 119/56; PULSE 85; RESP 16; TEMP 36.6; O2SAT 90
[2020-07-08] MEDS: ACETAMINOPHEN 325 MG TABLET 650 MG PO ×3 (02:39→13:38)
[2020-07-08 05:04] VITALS: BP 151/64; PULSE 76; RESP 16; TEMP 37; O2SAT 91
[2020-07-08] MEDS: amLODIPine BESYLATE 5 MG TABLET PO (08:11)
[2020-07-08] MEDS: DULoxetine HCL 30 MG CAPSULE.DR 90 MG PO (08:11)
[2020-07-08] MEDS: polyethylene glycoL 3350 17 GM POWD.PACK PO (08:11)
[2020-07-08] MEDS: ATORVASTATIN 20 MG TABLET PO (08:11)
[2020-07-08] MEDS: ASPIRIN 81 MG CHEWABLE TABLET PO (08:11)
--- NOTE | 2020-07-08 10:33 | PM.IMPN ---
Progress Note: A&P Assessment and Plan (1) Acute urinary retention: Code(s): R33.8 - Other retention of urine Status: Acute Assessment and Plan: ----- likely secondary to Myrbetriq and VESIcare use. Will hold these medications. She is also constipated so that can worsen it. Voiding trial underway. If she fails this I would suggest keeping the catheter and after discharge and follow-up with urology. Patient should be out of bed as much as possible. Urine cx negative. (2) Hypertension: Code(s): I10 - Essential (primary) hypertension Status: Acute Assessment and Plan: -----The patient does have a distant history of essential hypertension with prior antihypertensive use but she has not been on antihypertensives in many years. Probably worse d/t pain. Meds changed to 5mg norvasc. If she continues to run high I may increase this but would prefer not to increase it right away. Continue hydralazine PRN as well. (3) Compartment syndrome of left lower extremity: Qualifiers: Encounter type: initial encounter Qualified Code(s): T79.A22A - Traumatic compartment syndrome of left lower extremity, initial encounter Code(s): T79.A22A - Traumatic compartment syndrome of left lower extremity, initial encounter Status: Acute Assessment and Plan: -----Management per primary service. hgb stable Subjective Date/time seen: 07/08/20 10:33 Interval history: Pt is a 79-year-old female being seen for urinary retention. Patient was seen today and got the catheter taken out and has not urinated yet. We discussed that if she cannot urinate again, the catheter will be replaced and she will have to follow up with Urology outpatient in a couple weeks. She agrees. She says her knee feels little bit better. She still has not had a bowel movement I spoke to the nurse who verifies that she has not had a bowel movement even though there was 1 documented in the computer at 5:00 a.m. she further denies chest pain, shortness of breath, fevers, chills, nausea or vomiting. She is eating and drinking well Exam Narrative: Exam Narrative: General: Well developed well nourished patient resting comfortably in bed in no acute distress HEENT: normocephalic Neck: supple Neuro: sensation intact to the left lower extremity CV:RRR with slight murmur in right second ICS Resp:CTA Abd: Soft, mildly distended. No pain to palpation. Positive bowel sounds Extremities: swelling to the left knee in the brace. Distal pulses intact Objective Data Vital Signs Vital Signs: Vital Signs - 24 hr 07/07/20 13:30 07/07/20 20:51 07/08/20 05:04 Temperature 98.4 F 97.8 F 98.6 F Pulse Rate 80 85 76 Respiratory Rate 21 H 16 16 Blood Pressure 139/58 L 119/56 L 151/64 H Pulse Oximetry 95 90 91 Intake/Output Intake/Output: Intake & Output 07/05/20 07/06/20 07/07/20 07/08/20 23:59 23:59 23:59 23:59 Intake Total 920 1210 900 460 Output Total 1200 1400 1925 525 Balance -280 -190 -1025 -65 Meds/Results Medications: Active Medications Generic Name Dose Route Start Last Admin Trade Name Freq PRN Reason Stop Dose Admin Acetaminophen 650 mg 07/03/20 20:36 07/08/20 08:19 Tylenol Tablet PO 650 mg Q4H PRN Administration Mild Pain (1-3) or Fever Amlodipine Besylate 5 mg 07/07/20 09:00 07/08/20 08:11 Norvasc PO 5 mg QAM LUIS M Administration Aspirin 81 mg 07/05/20 09:00 07/08/20 08:11 Aspirin Chewable PO 81 mg DAILY LUIS M Administration Atorvastatin Calcium 20 mg 07/05/20 09:00 07/08/20 08:11 Lipitor PO 20 mg DAILY LUIS M Administration Bisacodyl 10 mg 07/08/20 10:32 Dulcolax Suppository RECTAL 07/08/20 10:33 ONCE ONE Duloxetine HCl 90 mg 07/05/20 09:00 07/08/20 08:11 Cymbalta PO 90 mg DAILY LUIS M Administration Hydralazine HCl 5 mg 07/06/20 21:32 Apresoline Tablet PO TID PRN SBP greater than 160 Magnesiu
--- NOTE | 2020-07-08 11:49 | PM.PNORT ---
Progress Note: A&P Assessment and Plan (1) Compartment syndrome of left lower extremity: Qualifiers: Encounter type: initial encounter Qualified Code(s): T79.A22A - Traumatic compartment syndrome of left lower extremity, initial encounter Code(s): T79.A22A - Traumatic compartment syndrome of left lower extremity, initial encounter Status: Acute Assessment and Plan: Swelling stable. Edema control patient more comfortable (2) Fracture, patella: Qualifiers: Encounter type: initial encounter Fracture alignment: nondisplaced Fracture morphology: transverse Fracture type: closed Laterality: left Qualified Code(s): S82.035A - Nondisplaced transverse fracture of left patella, initial encounter for closed fracture Code(s): S82.009A - Unspecified fracture of unspecified patella, initial encounter for closed fracture Status: Acute Assessment and Plan: PT/OT, protected weight Knee immobilizer when up. (3) Hypertension: Code(s): I10 - Essential (primary) hypertension Status: Acute Assessment and Plan: Appreciate hospitalist consult. Started on antihypertensive medication. (4) Urinary hesitancy: Code(s): R39.11 - Hesitancy of micturition Status: Acute Assessment and Plan: voiding trial. Catheter currently out. Appreciate hospitalist consultation. Subjective Subjective Date/Time Seen: 07/08/20 11:49 Up to chair. Patient states feeling better. Review of Systems Constitutional: Constitutional: Denies fever(s) Eyes: Eyes: Denies blurry vision ENT: Reports Normal hearing present Cardiovascular: Cardiovascular: Denies chest pain and Denies dyspnea Respiratory: Respiratory: Denies dyspnea and Denies wheezing Gastrointestinal: Gastrointestinal: Denies abdominal pain Genitourinary: Genitourinary: Denies urinary urgency Musculoskeletal: Musculoskeletal: Reports as per HPI and Denies numbness Integumentary/Breasts: Skin/Breast: Denies changing lesions and Denies sores Neurologic: Reports Normal hearing present, Denies behavioral changes, Reports confusion ( Dementia), Denies numbness and Denies convulsions Psychiatric: Psychiatric: Denies behavioral changes, Reports confusion ( dementia) and Denies hallucinations Endocrine: Endocrine: Denies heat intolerance Hematologic/Lymphatic: Hematologic/Lymphatic: Denies easy bleeding Allergic/Immunologic: Allergic/Immunologic: Denies wheezing Exam Const: General: healthy appearing and confusion; No in distress Orientation/consciousness: oriented to person, No oriented to place, No oriented to time and confusion HENMT: Head: normal to inspection, normocephalic and atraumatic Eyes: Conjunctivae: conjunctivae normal Sclera: sclerae normal Neck: Neck: supple and nontender Resp: Effort & Inspection: normal respiratory effort and no audible wheezes Cardio: Rate: regular rate Rhythm: regular rhythm Skin: General skin exam: no rashes or lesions noted Neuro: General: oriented to person, No oriented to place, No oriented to time and confusion Extrem: Right upper extremity: normal to inspection Left upper extremity: normal to inspection Right lower extremity: ankle Details: normal ROM ( able to flex and extend ankle) and foot Details: vascular exam Details: dorsalis pedis pulse present and normal capillary refill and motor-sensory exam Details: light-touch normal Location: in all toes Left lower extremity: hip/thigh Details: abnormal to inspection ( swelling anterior thigh), tenderness Location: of the mid upper leg Location: anteriorly and swelling ( moderate) Location: other ( anterior leg), knee Details: abnormal ROM Details: pain with active ROM Details: with flexion and pain with passive ROM Details: with flexion, ankle Details: normal ROM ( able to flex and extend ankle) and foot Details: normal capillary refill, normal to inspection, toes with normal ROM, vascular exam
[2020-07-08] MEDS: BISACODYL 10 MG SUPPOSITORY RECTAL (12:27)
--- NOTE | 2020-07-08 13:43 | PC.NURSE ---
Patient voided large amount in bathroom but missed U-hat. Bladder scan done after patient voided. Scan revealed 60-90 cc urine.
[2020-07-08] MEDS: MAGNESIUM HYDROXIDE SUSP 30 ML UDC PO (14:34)
--- NOTE | 2020-07-08 15:02 | PM.DS ---
DS: Admitting Diagnosis Admitting Diagnosis Admitting Diagnosis: Left anterior thigh compartment syndrome left patella fracture DS: Discharge Diagnosis Discharge Diagnosis (1) Fracture, patella: Qualifiers: Encounter type: initial encounter Fracture alignment: nondisplaced Fracture morphology: transverse Fracture type: closed Laterality: left Qualified Code(s): S82.035A - Nondisplaced transverse fracture of left patella, initial encounter for closed fracture Code(s): S82.009A - Unspecified fracture of unspecified patella, initial encounter for closed fracture Status: Acute Assessment and Plan: closed treatment. Ice and elevate. May flex and extend knee as tolerated. Weightbearing as tolerated with knee immobilizer in place. Walker for ambulation. Plan for PT/OT at nursing facility. (2) Compartment syndrome of left lower extremity: Qualifiers: Encounter type: initial encounter Qualified Code(s): T79.A22A - Traumatic compartment syndrome of left lower extremity, initial encounter Code(s): T79.A22A - Traumatic compartment syndrome of left lower extremity, initial encounter Status: Acute Assessment and Plan: Swelling and pain improved over hospital course. Stable at time of discharge. Continue with edema control with ice and elevation. DS: Summary Time Spent with Patient Time attestation: Total time spent providing and/or coordinating discharge services: 79-year-old woman admitted through the emergency room on July 03 with left patella fracture and significant anterior thigh swelling with concern for compartment syndrome. Compartment pressure was checked and noted to be elevated. Patient remained stable with well-controlled pain and never became extreme. Left lower extremity neurovascularly intact throughout the entire admission. Responded well to conservative care with ice, elevation and knee immobilizer. Patient with history of dementia. Was not a good surgical candidate given medical comorbidities and inability to rehab. Hospital course complicated by urinary hesitancy, hypertension and constipation. Treated with Leone catheter x2. Patient passed a voiding trial on day of discharge. Patient given a stool softener and responded with bowel movement on day of discharge. Hypertension well controlled with oral medication. Patient had physical therapy and occupational therapy consultation. She was cleared by therapy at the time of discharge. On July 08 she was medically stable for discharge to [facility]. We are going to continue her antihypertensive medication. She is going to follow up with her primary care physician for that. PT/OT at the nursing facility with assisted ambulation weight bear as tolerated left leg with a knee immobilizer. Use of walker as needed. Follow up in the orthopedic office in 3 to 4 weeks for re-evaluation. Exam Const: General: healthy appearing and confusion; No in distress Orientation/consciousness: oriented to person, No oriented to place, No oriented to time and confusion HENMT: Head: normal to inspection, normocephalic and atraumatic Eyes: Conjunctivae: conjunctivae normal Sclera: sclerae normal Neck: Neck: supple and nontender Resp: Effort & Inspection: normal respiratory effort and no audible wheezes Cardio: Rate: regular rate Rhythm: regular rhythm Skin: General skin exam: no rashes or lesions noted Neuro: General: oriented to person, No oriented to place, No oriented to time and confusion Extrem: Right upper extremity: normal to inspection Left upper extremity: normal to inspection Right lower extremity: ankle and foot Left lower extremity: hip/thigh, knee, ankle and foot Other: Left thigh swelling stable. Moderately tender to palpation. Able to actively extend the knee. Able to actively straight leg raise. Distally neurovascular intact. Ecchymosis anterior thigh. Psych: Affect: normal aff
== END 2020-07-08 16:00 | DRG 563 ==
LOC: ANHED 20:38 → ANH2MED 07-04 14:33
PROVIDERS: Internal Medicine; Admitting Provider Orthopaedic Surgery; Emergency Provider Emergency Medicine; PCP Student in an Organized Health Care Education/Training Program; Visit Provider Orthopaedic Surgery
DX: S82.035A Nondisplaced transverse fracture of left patella, initial encounter for closed fracture (principal); T79.A22A Traumatic compartment syndrome of left lower extremity, initial encounter; W19.XXXA Unspecified fall, initial encounter; R33.9 Retention of urine, unspecified; E78.5 Hyperlipidemia, unspecified; F03.90 Unspecified dementia, unspecified severity, without behavioral disturbance, psychotic disturbance, mood disturbance, and anxiety; F32.9 Major depressive disorder, single episode, unspecified; I10 Essential (primary) hypertension; Z20.828 Contact with and (suspected) exposure to other viral communicable diseases
CPT/HCPCS: 36415; 70450; 73552; 73700; 80048; 81001; 82550; 85025; 85027; 85610; 85730; 87086; 87635; 90471; 90715; 97110; 97116; 97161; 97165; 97530; 97535; 99285; A9270; C9803; J2405; J7030; L1830; U0003

== ENCOUNTER 2020-09-16 08:48 | Emergency (ER) | payer MEDICARE, SELFPAY ==
--- NOTE | ~2020-09-16 | CT_ITS ---
EXAMINATION: CT brain wo con DATE: 09/16/2020 09:30 INDICATION: Fall. Head and neck injury. TECHNIQUE: Computed tomography (CT) of the head was performed without intravenous contrast. The mA wa s adjusted according to patient size. Iterative reconstruction technique was employed. Exam dose: 60 5.33 mGy-cm total exam DLP. COMPARISON: 07/03/2020 CT brain FINDINGS: Chronic infarct of left basal ganglia and anterior limb of left internal capsule, stable si nce 07/03/2020. There is bilateral carotid siphon internal carotid artery calcification. There is nonspecific diminis hed attenuation cerebral white matter, likely due to chronic small vessel ischemic changes. No intracranial mass lesion or hemorrhage or recent cerebrovascular accident is evident. There is min imal bilateral basal ganglia calcification. No subdural or epidural hematoma. No fracture or bone destruction of the cranial vault. Included paranasal sinuses and mastoid air cell s are normally developed and aerated. 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 Reviewed, dictated and finalized at [facility]. UNT ANALYST IMPRESSION: Chronic left basal ganglia and anterior limb left internal capsule lacunar infarct, unchanged since 07/03/2020 Cerebral atherosclerosis and chronic small vessel ischemic changes of the cereb ral white matter No acute intracranial finding or significant change since 07/03/2020
--- NOTE | ~2020-09-16 | CT_ITS ---
EXAMINATION: CT cervical spine wo con DATE: 09/16/2020 09:31 INDICATION: Fall. Head and neck injuries. TECHNIQUE: Computed tomography (CT) of the cervical spine was performed without intravenous contrast. Automated exposure control and iterative reconstruction technique were employed. Exam dose: 232.97 mGy-cm total exam DLP. COMPARISON: None FINDINGS: C1 and C2 are normally aligned and the odontoid process is intact. There is moderate degenerative disc disease at C3-4 with right-sided anterior and posterior fusion at C3-4. There is mild anterolisthesis at C4-5. There is moderately severe degenerative disc disease at C5-6 and C6-7. There is degenerative change at the apophyseal joints throughout the cervical spine. There is particu larly prominent uncovertebral joint spurring at C5-6 and C6-7. Clinical data some irregular soft tissue pulmonary and possible pleural thickening and calcification in the posterior right upper chest, only partially visualized on this examination. There is less prom inent posterior probable left apical scarring. IMPRESSION: Extensive degenerative changes; no fracture or dislocation Reviewed, dictated and finalized at [facility]. Reviewed, dictated and finalized at [facility]. LASSER
[2020-09-16 08:47] VITALS: BP 143/75; PULSE 90; RESP 20; TEMP 36.7; O2SAT 93
--- NOTE | 2020-09-16 08:54 | ED.FALL ---
HPI - Fall General Chief Complaint: Fall Stated Complaint: Fall Time Seen by Provider: 09/16/20 08:54 History of Present Illness HPI Narrative: Brought in by EMS from half-way for multiple falls. She fell yesterday and seemed to being doing fine after the fall. This morning she was once again found on the floor. She has no complaints. She does not rember falling. She is reported to be at baseline mental status. History limited by dementia Related Data Home Medications Medication Instructions Recorded Confirmed aspirin 81 mg PO DAILY 07/04/20 07/04/20 atorvastatin 20 mg PO DAILY 07/04/20 07/04/20 donepezil 5 mg PO DAILY 07/04/20 07/04/20 duloxetine 90 mg PO DAILY 07/04/20 07/04/20 Allergies Allergy/AdvReac Type Severity Reaction Status Date / Time oxybutynin [From Ditropan] Allergy Unknown Unknown Verified 09/16/20 08:53 Review of Systems Review of Systems: ROS unobtainable: Yes unobtainable due to mental status PMFSH Past Medical History Medical History Dementia Depression Essential hypertension Hepatitis in the 1970s Hyperlipidemia Osteopenia Traumatic hematoma of left thigh Urge urinary incontinence on Myrbetriq and VESIcare Surgical History Surgical History History of arthroscopy of right knee 2006 History of hysterectomy History of right cataract surgery Family History Family History Unknown Unknown family medical history Social History Social History Social History: Per the patient's report she has lived at [facility] living for the last 15 months. She has 2 adult sons . 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 Her son Gilberto as her surrogate decision maker. She has advanced directives in place. Primary care physician: Dr. Hi Jackson Code status: Full code Smoking status: Never smoker Alcohol intake: never Substance use: never Gender identity (if verbalized by the patient): Female Spiritual care concerns: No Exam Const: General: healthy appearing, no acute distress and alert Other: oriented x2 HENMT: Head: normal to inspection Neck: Neck: normal visual inspection and no lymphadenopathy Chest: Chest palpation & inspection: no tenderness Resp: Effort & Inspection: normal respiratory effort Auscultation: clear to auscultation bilaterally, no rales, no rhonchi and no wheezes Cardio: Jugular venous distension: no JVD Rate: regular rate Rhythm: regular rhythm Heart sounds: no murmurs GI: Inspection: non-distended GI Palp: Yes Soft to palpation and No Tenderness to palpation present (GI) Skin: General skin exam: normal color Neuro: General: patient oriented x3 and moves all extremities Speech: normal speech Extrem: General: no edema Psych: Appearance: well kempt Affect: normal affect Course Vital Signs Vital signs: Vital Signs Temperature 36.7 C 09/16/20 08:47 Pulse Rate 90 09/16/20 08:47 Respiratory Rate 20 09/16/20 08:47 Blood Pressure 143/75 H 09/16/20 08:47 Pulse Oximetry 93 09/16/20 08:47 Temperature 36.7 C 09/16/20 08:47 Pulse Rate 85 09/16/20 11:45 Respiratory Rate 20 09/16/20 11:45 Blood Pressure 157/85 H 09/16/20 11:45 Pulse Oximetry 98 09/16/20 11:45 MDM - Fall MDM Narrative Medical decision making narrative: Imaging negative. UA concerning for infection Differential Diagnosis Differential diagnosis: Likely other (SDH, concussion, UTi) Medical Records Attestation: I reviewed the patient's medical records. Lab Data Attestation: I reviewed the patient's lab results. Labs: Lab Results 09/16/20 Range/Units 09:39 Urine Color Yellow (Yellow) Urine Appearance Clear (Clear) Urine pH 6.0 (5
[2020-09-16 09:16] VITALS: BP 128/68; PULSE 93; RESP 20; O2SAT 96
[2020-09-16 09:39] VITALS: BP 144/68; PULSE 86; RESP 20; O2SAT 98
[2020-09-16 10:19] LABS: Add Urine Microscopic? YES; Appearance Urine Clear (Clear); Bilirubin Urine Negative (Negative); Blood Urine Negative (Negative); Color Urine Yellow (Yellow); Glucose Urine UA Negative (Negative); Ketones Urine Trace mg/dL (Negative); Leukocyte Esterase Ur Negative LEU/UL (Negative); Mucus Urine Rare /lpf; Nitrate Urine Positive (Negative); Protein Urine 2+ mg/dL (Negative); RBC Urine 0-2 /hpf (0-2); Specific Grav Ur 1.017 (1.001-1.035); WBC Urine 0-3 /hpf
--- NOTE | 2020-09-16 11:05 | PC.NURSE ---
CALLED PT SON AND POREBECCA Gonzalez. STATES HE WILL BE HERE IN 30 MINUTES
[2020-09-16 11:06] VITALS: BP 157/65; PULSE 85; RESP 20; O2SAT 96
[2020-09-16] MEDS: NITROFURANTOIN MONOHYD MACROCR 100 MG CAP PO (11:22)
[2020-09-16 11:45] VITALS: BP 157/85; PULSE 85; RESP 20; O2SAT 98
== END 2020-09-16 11:48 ==
PROVIDERS: Emergency Provider Emergency Medicine; PCP Student in an Organized Health Care Education/Training Program
DX: N30.00 Acute cystitis without hematuria (principal); F03.90 Unspecified dementia, unspecified severity, without behavioral disturbance, psychotic disturbance, mood disturbance, and anxiety; Z79.82 Long term (current) use of aspirin; F32.9 Major depressive disorder, single episode, unspecified; I10 Essential (primary) hypertension; E78.5 Hyperlipidemia, unspecified; M85.80 Other specified disorders of bone density and structure, unspecified site; Z98.41 Cataract extraction status, right eye; I67.2 Cerebral atherosclerosis
CPT/HCPCS: 51701; 70450; 72125; 81001; 99284; A9270

== ENCOUNTER 2020-09-19 20:48 | Emergency (ER) | payer MEDICARE, SELFPAY ==
--- NOTE | ~2020-09-19 | CT_ITS ---
EXAMINATION: CT cervical spine wo con DATE: 09/19/2020 21:30 INDICATION: Dementia post fall from wheelchair. Hurts all over TECHNIQUE: Computed tomography (CT) of the cervical spine was performed without intravenous contrast. Automated exposure control and iterative reconstruction technique were employed. The dose-length pro duct was 208.30 mGy-cm. COMPARISON: 09/16/2020 FINDINGS: 1-2 mm anterolisthesis C4 on C5. Vertebral body heights are normal. No fracture. Severe osteoarthriti s at the atlantoaxial articulation. Moderate disc height loss at C5-C6, mild to moderate disc height loss at C2-C3, C3-C4 and C6-C7. Mild disc height loss at C4-C5, T1-T2 and T2-T3. Cervical soft tissue s are unremarkable. Unchanged biapical pleural-parenchymal scarring. The following disc levels are sp ecifically discussed: C2-C3: Disc is bulging. There is mild bilateral uncovertebral joint osteoarthritis. There is mild to moderate right and severe left facet joint osteoarthritis. There is no neural foraminal stenosis. The re is mild central canal stenosis. C3-C4: Posterior disc osteophyte complex. There is moderate left uncovertebral joint osteoarthritis. Right uncovertebral joint and facet joints are fused. There is moderate left facet joint osteoarthrit is. There is mild left and mild to moderate right neural foraminal stenosis. There is mild to moderat e central canal stenosis. C4-C5: Disc is bulging There is mild bilateral uncovertebral joint osteoarthritis. There is severe bi lateral facet joint osteoarthritis. There is mild right neural foraminal stenosis. There is mild cent ral canal stenosis. C5-C6: Posterior disc osteophyte complex. There is severe bilateral uncovertebral joint osteoarthriti s. There is mild right and severe left facet joint osteoarthritis. There is mild to moderate bilatera l neural foraminal stenosis. There is mild to moderate central canal stenosis. C6-C7: Disc is bulging. There is moderate right and severe left uncovertebral joint osteoarthritis. T here is mild bilateral facet joint osteoarthritis. There is mild right and mild to moderate left neur al foraminal stenosis. There is mild central canal stenosis. C7-T1: Disc is mildly bulging. There is mild left and moderate right uncovertebral joint osteoarthrit is. There is moderate right and severe left facet joint osteoarthritis. There is mild to moderate rig ht and mild left neural foraminal stenosis. There is mild central canal stenosis. IMPRESSION: 1. Moderate to severe cervical spondylosis. No acute osseous abnormality. Reviewed, dictated and finalized at location [facility]. NDING ANESTHESIOLOGIST
--- NOTE | ~2020-09-19 | CT_ITS ---
EXAMINATION: CT brain wo con DATE: 09/19/2020 21:30 INDICATION: Dementia presenting with pain all over post fall from wheelchair. TECHNIQUE: Computed tomography (CT) of the head was performed without intravenous contrast. Sagittal and coronal reconstructions were performed. The mA was adjusted according to patient size. Iterative reconstruction technique was employed. The dose-length product was 605.33 mGy-cm. COMPARISON: head CT dated 07/03/2020 FINDINGS: No fracture. Old infarct at the left basal ganglia extending from the anterior lentiform nucleus acro ss anterior limb of the internal capsule to the head of the caudate nucleus. No acute intracranial he morrhage, acute infarction or abnormal extra axial fluid collection. There is mild scattered white ma tter hypoattenuation consistent with chronic small vessel ischemic disease. Symmetric prominence of the sulciand ventricles consistent with mild moderate age-appropriate diffuse cerebral volume loss. No mass/mass effect. Changes of bilateral intraocular lens replacement. The orbits, paranasal sinuses and mastoid air cells are normal. IMPRESSION: 1. No fracture or acute intracranial process. 2. Chronic infarct at the left basal ganglia. 3. Age-related changes including mild to moderate diffuse volume loss and mild scattered white matter hypoattenuation consistent with chronic small vessel ischemic disease. Reviewed, dictated and finalized at location [facility]. AND DIE INSPECTOR IMPRESSION: 1. No fracture or acute intracranial process. 2. Chronic infarct at the left basal ganglia. 3. Age-related changes including mild to moderate diffuse volume loss and mild scattered white matter hypoattenuation consistent with chronic small vessel isc hemic disease.
[2020-09-19 20:56] VITALS: BP 154/76; PULSE 94; RESP 20; TEMP 36.9; O2SAT 99
--- NOTE | 2020-09-19 20:57 | ED.GENADULT ---
HPI - General Adult General Chief complaint: Fall Stated complaint: fall out of wheelchair Time Seen by Provider: 09/19/20 20:50 Source: patient History of Present Illness HPI narrative: Patient is a 79 y/o female sent from [place] because she fell out of wheel chair. She states that she hurts all over, but has no localized headache, neck pain, chest pain or abdominal pain. She denies any LOC. Related Data Home Medications Medication Instructions Recorded Confirmed aspirin 81 mg PO DAILY 07/04/20 07/04/20 atorvastatin 20 mg PO DAILY 07/04/20 07/04/20 donepezil 5 mg PO DAILY 07/04/20 07/04/20 duloxetine 90 mg PO DAILY 07/04/20 07/04/20 Allergies Allergy/AdvReac Type Severity Reaction Status Date / Time oxybutynin [From Ditropan] Allergy Unknown Unknown Verified 09/16/20 08:53 Review of Systems Constitutional: Constitutional: Denies chills, Denies fever(s), Denies headache(s) and Denies weakness Eyes: Eyes: Denies blurry vision ENT: Denies headache(s) and Denies neck pain Cardiovascular: Cardiovascular: Denies chest pain and Denies dyspnea Respiratory: Respiratory: Denies cough and Denies dyspnea Gastrointestinal: Gastrointestinal: Denies abdominal pain, Denies diarrhea, Denies nausea and Denies vomiting Genitourinary: Genitourinary: Denies hematuria and Denies dysuria Musculoskeletal: Musculoskeletal: Denies back pain, Reports myalgias and Denies neck pain Neurologic: Denies headache(s) and Denies weakness [facility] Past Medical History Medical History Dementia Depression Essential hypertension Hepatitis in the 1970s Hyperlipidemia Osteopenia Traumatic hematoma of left thigh Urge urinary incontinence on Myrbetriq and VESIcare Surgical History Surgical History History of arthroscopy of right knee 2006 History of hysterectomy History of right cataract surgery Family History Family History Unknown Unknown family medical history Social History Social History Social History: Per the patient's report she has lived at [facility] living for the last 15 months. She has 2 adult sons . 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 Her son Gilberto as her surrogate decision maker. She has advanced directives in place. Primary care physician: Dr. Hi Jackson Code status: Full code Smoking status: Never smoker Alcohol intake: never Substance use: never Gender identity (if verbalized by the patient): Female Spiritual care concerns: No Exam Const: General: no acute distress and well developed Orientation/consciousness: oriented to person and oriented to place HENMT: Head: normocephalic Ears: external ears normal General nose exam: Normal external nose present Eyes: General: appearance normal, both eyes and all related structures Conjunctivae: conjunctivae normal Neck: Neck: normal visual inspection and full ROM Chest: Chest palpation & inspection: normal inspection of the chest and no tenderness Resp: Effort & Inspection: normal respiratory effort Auscultation: clear to auscultation bilaterally Cardio: Rate: regular rate Rhythm: regular rhythm GI: GI Palp: No abdominal tenderness and Yes Soft to palpation Skin: General skin exam: normal color and turgor normal Neuro: General: oriented to person and oriented to place Cognition (Neuro): normal cognition Extrem: General: normal to inspection, full ROM and no pedal edema Psych: Appearance: grossly normal Mental Status: mental status grossly normal Affect: normal affect Course Vital Signs Vital signs: Vital Signs Temperature 36.9 C 09/19/20 20:56 Pulse Rate 94 09/19/20 20:56 Respiratory Rate 20 09/19/20 20:56 Blood Pressure 154/76 H 09/19/20 20:
[2020-09-20 00:34] VITALS: BP 169/89; PULSE 88; RESP 20; O2SAT 100
== END 2020-09-20 00:52 ==
PROVIDERS: Emergency Provider Emergency Medicine; PCP Student in an Organized Health Care Education/Training Program
DX: I10 Essential (primary) hypertension (principal); E78.5 Hyperlipidemia, unspecified
CPT/HCPCS: 70450; 72125; 99284

== ENCOUNTER 2020-09-21 19:57 | Emergency (ER) | payer MEDICARE, SELFPAY ==
--- NOTE | ~2020-09-21 | CT_ITS ---
EXAMINATION: CT brain wo con DATE: 09/21/2020 21:58 INDICATION: Altered mental status. Fall. TECHNIQUE: Computed tomography (CT) of the head was performed without intravenous contrast. Sagittal and coronal reconstructions were performed. The mA was adjusted according to patient size. Iterative reconstruction technique was employed. The dose-length product was 605.33 mGy-cm. COMPARISON: head CT dated 09/19/2020 FINDINGS: No fracture. Old infarct at the left basal ganglia extending from the anterior lentiform nucleus acro ss anterior limb of the internal capsule to the head of the caudate nucleus. No acute intracranial he morrhage, acute infarction or abnormal extra axial fluid collection. There is mild scattered white ma tter hypoattenuation consistent with chronic small vessel ischemic disease. Symmetric prominence of t he sulci and ventricles consistent with mild moderate age-appropriate diffuse cerebral volume loss. N o mass/mass effect. Changes of bilateral intraocular lens replacement. The orbits, paranasal sinuses and mastoid air cells are normal. IMPRESSION: 1. No fracture or acute intracranial process. 2. Chronic infarct at the left basal ganglia. 3. Age-related changes including mild to moderate diffuse volume loss and mild scattered white matter hypoattenuation consistent with chronic small vessel ischemic disease. Reviewed, dictated and finalized at location [facility]. AL SCIENCES RESEARCH SCIENTIST IMPRESSION: 1. No fracture or acute intracranial process. 2. Chronic infarct at the left basal ganglia. 3. Age-related changes including mild to moderate diffuse volume loss and mild scattered white matter hypoattenuation consistent with chronic small vessel isc hemic disease.
[2020-09-21 19:58] VITALS: BP 156/81; PULSE 80; RESP 18; TEMP 36.9; O2SAT 97
--- NOTE | 2020-09-21 20:06 | ECG_ITS ---
Measurements Intervals Irene Rate: 81 P: 36 NC: 167 QRS: -4 QRSD: 92 T: 10 QT: 355 QTc: 412 Interpretive Statements SINUS RHYTHM VOLTAGE CRITERIA FOR LVH CONSIDER INFERIOR INFARCT, AGE INDETERMINATE BASELINE ARTIFACT- I, II, III, AVL ABNORMAL ECG Electronically Signed On 09-22-2020 7:33:32 CRANE OILER by Sean Paul D.O.
[2020-09-21 20:30] LABS: Basophils Percent Auto 0.3 % (0.2-1.2); Eosinophils Absolute Auto 0.1 K/mm3 (0-0.3); Eosinophils Percent Auto 0.8 % (0-4.4); Hematocrit 41.5 % (37.0-47.0); Hemoglobin 14.2 g/dL (12.0-15.0); Immature Granulocyte Absolute 0.03 K/mm3 (0.00-0.031); Immature Granulocyte Percent A 0.4 % (0-0.5); Lymphocytes Absolute Auto 1.36 K/mm3 (0.9-3.2); Mean Corpuscular HGB Conc 34.2 g/dl (32-36); Mean Corpuscular Hemoglobin 31.2 pg (26-34); Mean Corpuscular Volume 91.2 fl (80-100); Mean Platelet Volume 10.9 fl (7.4-10.4); Monocytes Absolute Auto 1.3 K/mm3 (0.1-0.6); Monocytes Percent Auto 16.5 % (2.6-8.5); Neutrophils Absolute Auto 5.2 K/mm3 (1.3-6.7); Platelet Count Result 162 k/mm3 (150-375); Red Blood Count 4.55 M/mm3 (4.2-5.4); Red Cell Distribution Width 12.6 % (11.5-14.5)
[2020-09-21 20:35] LABS: Add Urine Microscopic? YES; Appearance Urine Clear (Clear); Bilirubin Urine Negative (Negative); Blood Urine Negative (Negative); Color Urine Yellow (Yellow); Glucose Urine UA Negative (Negative); Ketones Urine Trace mg/dL (Negative); Leukocyte Esterase Ur Negative LEU/UL (Negative); Mucus Urine Moderate /lpf; Nitrate Urine Negative (Negative); Protein Urine 1+ mg/dL (Negative); RBC Urine 0-2 /hpf (0-2); Specific Grav Ur 1.021 (1.001-1.035); WBC Urine 0-3 /hpf
--- NOTE | 2020-09-21 20:40 | ED.AMS ---
HPI - Altered Mental Status General Chief Complaint: Altered Mental Status Stated Complaint: AMS Time Seen by Provider: 09/21/20 20:26 History of Present Illness HPI narrative: 79 yo female brought in from assisted living by EMS for strange behavior. She has reportedly had multiple falls over the past week and today she was found naked smearing feces on the wall. On my evaluation she has no complaints and does not know why she is here. History limited by dementia. Related Data Home Medications Medication Instructions Recorded Confirmed aspirin 81 mg PO DAILY 07/04/20 09/23/20 atorvastatin 20 mg PO DAILY 07/04/20 09/23/20 donepezil 5 mg PO DAILY 07/04/20 09/23/20 duloxetine 90 mg PO DAILY 07/04/20 09/23/20 mirabegron [Myrbetriq] 50 mg PO HS 09/23/20 09/23/20 solifenacin 5 mg PO HS 09/23/20 09/23/20 Allergies Allergy/AdvReac Type Severity Reaction Status Date / Time oxybutynin [From Ditropan] Allergy Unknown Unknown Verified 09/23/20 02:25 Review of Systems Review of Systems: ROS unobtainable: Yes unobtainable due to mental status PMFSH Past Medical History Medical History Dementia Depression Essential hypertension Hepatitis in the 1970s Hyperlipidemia Osteopenia Traumatic hematoma of left thigh Urge urinary incontinence on Myrbetriq and VESIcare Surgical History Surgical History History of arthroscopy of right knee 2006 History of hysterectomy History of right cataract surgery Family History Family History Unknown Unknown family medical history Social History Social History Social History: Per the patient's report she has lived at [facility] for the last 15 months. She has 2 adult sons . 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 Her son Gilberto as her surrogate decision maker. She has advanced directives in place. Primary care physician: Dr. Hi Luchtefeld Code status: Full code Smoking status: Never smoker Alcohol intake: never Substance use: never Gender identity (if verbalized by the patient): Female Spiritual care concerns: No Exam Const: General: healthy appearing, no acute distress and alert Other: oriented x1 HENMT: Head: normal to inspection, no contusions, no hematomas and no lacerations Mouth: Yes moist mucous membranes Eyes: Conjunctivae: conjunctivae normal Pupils: Equal, round and reactive pupils present EOM: EOMs intact bilaterally Resp: Effort & Inspection: normal respiratory effort Auscultation: clear to auscultation bilaterally Cardio: Rate: regular rate Rhythm: regular rhythm GI: GI Palp: Yes Soft to palpation and No Tenderness to palpation present (GI) Skin: General skin exam: normal color Neuro: General: patient oriented x3, moves all extremities, no focal motor deficits and CN's II-XI intact bilaterally Speech: normal speech Extrem: General: normal to inspection and no edema Course Vital Signs Vital signs: Vital Signs Temperature 36.9 C 09/21/20 19:58 Pulse Rate 80 09/21/20 19:58 Respiratory Rate 18 09/21/20 19:58 Blood Pressure 156/81 H 09/21/20 19:58 Pulse Oximetry 97 09/21/20 19:58 Temperature 36.9 C 09/21/20 19:58 Pulse Rate 80 09/21/20 23:27 Respiratory Rate 18 09/21/20 23:27 Blood Pressure 157/77 H 09/21/20 23:27 Pulse Oximetry 99 09/21/20 23:27 MDM - Altered Mental Status MDM Narrative Medical decision making narrative: Work-up all negative. This is likely progression of her dementia. She is likely not a good candidate to remain in assisted living, but she does not require hospitalization at this time. I would like to avoid this especially given the pandemic. Medical Records Attestation: I review
[2020-09-21 20:42] LABS: Alanine Aminotransferase 26 U/L (4-35); Albumin Level 3.8 g/dL (3.5-5.1); Alkaline Phosphatase 77 U/L (38-126); Anion Gap 8 mmol/L (8-16); Aspartate Amino Transferase 33 U/L (14-36); Bilirubin,Total 1.3 mg/dL (0.2-1.3); Blood Urea Nitrogen 20 mg/dL (7-17); Calcium 9.6 mg/dL (8.4-10.2); Carbon Dioxide 25 mmol/L (22-30); Chloride 107 mmol/L (98-107); Estimated Glomerular Filt Rate 54; Glucose 108 mg/dL (65-105); Potassium 3.5 mmol/L (3.4-5.0); Sodium 140 mmol/L (137-145)
[2020-09-21 21:56] VITALS: BP 156/77; PULSE 83; RESP 19; O2SAT 99
[2020-09-21 22:21] VITALS: BP 168/75; PULSE 84; RESP 14; O2SAT 100
--- NOTE | 2020-09-21 22:52 | PC.NURSE ---
called [facility] to request transport. ETA [phone]
--- NOTE | 2020-09-21 22:55 | PC.NURSE ---
called [facility] to request transport.
--- NOTE | 2020-09-21 23:16 | PC.NURSE ---
called [facility] to check on the status of trip request. Crew on the way - left about 15-20 minutes ago.
--- NOTE | 2020-09-21 23:24 | PC.NURSE ---
[facility] here
[2020-09-21 23:27] VITALS: BP 157/77; PULSE 80; RESP 18; O2SAT 99
== END 2020-09-21 23:33 ==
PROVIDERS: Emergency Provider Emergency Medicine; PCP Student in an Organized Health Care Education/Training Program
DX: F03.91 Unspecified dementia, unspecified severity, with behavioral disturbance (principal); Z98.41 Cataract extraction status, right eye; I10 Essential (primary) hypertension; F32.9 Major depressive disorder, single episode, unspecified; E78.5 Hyperlipidemia, unspecified; M85.80 Other specified disorders of bone density and structure, unspecified site; R32 Unspecified urinary incontinence; Z79.82 Long term (current) use of aspirin; R94.31 Abnormal electrocardiogram [ECG] [EKG]
CPT/HCPCS: 36415; 51701; 70450; 80053; 81001; 85025; 93005; 99284

== ENCOUNTER 2020-09-22 23:14 | Inpatient (IN) | payer MEDICARE, SELFPAY ==
--- NOTE | ~2020-09-22 | XR_ITS ---
EXAMINATION: XR abdomen/kub 1V DATE: 09/26/2020 12:29 INDICATION: Abdominal distention. TECHNIQUE: A supine view of the abdomen on 2 radiographs was obtained. COMPARISON: None. FINDINGS: There are no dilated loops of bowel. There is a moderate volume of stool in the colon. IMPRESSION: 1. Nonobstructive bowel gas pattern. Reviewed, dictated and finalized at location B. ANNEALER
--- NOTE | ~2020-09-22 | XR_ITS ---
EXAMINATION: XR chest 2V DATE: 09/26/2020 12:29 INDICATION: Abnormal lung sounds. Abdominal distention. Constipation. TECHNIQUE: Frontal and lateral views of the chest were obtained. COMPARISON: CT cervical spine 09/19/2020 FINDINGS: There is mild scarring at the lung apices. No pleural effusion or pneumothorax. The heart s ize is normal. IMPRESSION: 1. Mild scarring at the lung apices. Reviewed, dictated and finalized at location B. ER HAND
--- NOTE | ~2020-09-22 | CT_ITS ---
EXAMINATION: CT chest abdomen pelvis wo con DATE: 09/27/2020 16:29 INDICATION: Nausea and vomiting. TECHNIQUE: Computed tomography (CT) of the chest, abdomen, and pelvis was performed without intraveno us contrast. Automated exposure control and iterative reconstruction technique were employed. The dos e-length product was 683.77 mGy-cm. COMPARISON: None FINDINGS: CHEST CT: There is scarring at the lung apices, right worse than left. There is mild atelectasis bilaterally. N o pleural effusion. The heart size is normal. No pericardial effusion. There is thoracic kyphosis and mild spondylosis. ABDOMEN/PELVIS CT: The liver and gallbladder are normal. There are peripheral calcifications in the spleen, likely from old injury. The pancreas and adrenal glands are normal. There is cortical thinning of left kidney. Th ere are parenchymal calcifications in left kidney. Right kidney is normal. There are no dilated loops of bowel. The appendix is not visualized. There are no pathologically enlarged lymph nodes. There is no free intraperitoneal fluid. There is moderate lumbar spondylosis. IMPRESSION: 1. No etiology for the patient's symptoms. Reviewed, dictated and finalized at location B. Y HEAD START DIRECTOR
--- NOTE | ~2020-09-22 | CT_ITS ---
EXAMINATION: CT brain wo con DATE: 09/22/2020 23:53 INDICATION: Status post fall. Headache. TECHNIQUE: Computed tomography (CT) of the head was performed without intravenous contrast. The dose- length product was 605.33 mGy-cm. Automated exposure control and iterative reconstruction technique w ere employed. COMPARISON: CT dated 09/21/2020 FINDINGS: Chronic left lacunar infarction involving the caudate nucleus. Generalized atrophy. There a re scattered mild periventricular and subcortical white matter changes, most likely related to small vessel ischemic disease (microangiopathy). Chronic focal left cerebellar infarction. Paranasal sinuse s and mastoids are pneumatized. No depressed skull fractures. IMPRESSION: 1. No acute intracranial abnormality. 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 3: Chronic age-related findings. Reviewed, dictated and finalized at location A. T WASHER
[2020-09-22 23:15] VITALS: BP 165/80; PULSE 79; RESP 20; TEMP 36.8; O2SAT 96
--- NOTE | 2020-09-22 23:35 | ED.FALL ---
HPI - Fall General Chief Complaint: Fall Stated Complaint: fall Time Seen by Provider: 09/22/20 23:24 History of Present Illness HPI Narrative: Brought in by EMS from assisted living after a fall. She has displayed strange behavior and had multiple falls recently. She has been seen here 2 other times recently and been discharged back to the assisted living after negative work-up. She has no complaints on my evaluation. Related Data Home Medications Medication Instructions Recorded Confirmed aspirin 81 mg PO DAILY 07/04/20 09/23/20 atorvastatin 20 mg PO DAILY 07/04/20 09/23/20 donepezil 5 mg PO DAILY 07/04/20 09/23/20 duloxetine 90 mg PO DAILY 07/04/20 09/23/20 mirabegron [Myrbetriq] 50 mg PO HS 09/23/20 09/23/20 solifenacin 5 mg PO HS 09/23/20 09/23/20 Allergies Allergy/AdvReac Type Severity Reaction Status Date / Time oxybutynin [From Ditropan] Allergy Unknown Unknown Verified 09/23/20 02:25 Review of Systems Review of Systems: ROS unobtainable: Yes unobtainable due to mental status PMFSH Past Medical History Medical History Dementia Depression Essential hypertension Hepatitis in the 1970s Hyperlipidemia Osteopenia Traumatic hematoma of left thigh Urge urinary incontinence on Myrbetriq and VESIcare Surgical History Surgical History History of arthroscopy of right knee 2006 History of hysterectomy History of right cataract surgery Family History Family History Unknown Unknown family medical history Social History Social History Social History: Per the patient's report she has lived at [facility] for the last 15 months. She has 2 adult sons . 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 Her son Gilberto as her surrogate decision maker. She has advanced directives in place. Primary care physician: Dr. Hi Jackson Code status: Full code Smoking status: Never smoker Alcohol intake: never Substance use: never Gender identity (if verbalized by the patient): Female Spiritual care concerns: No Exam Const: General: healthy appearing, no acute distress and alert Other: oriented to self HENMT: Head: normal to inspection Eyes: Pupils: Equal, round and reactive pupils present Neck: Neck: normal visual inspection and no lymphadenopathy Chest: Chest palpation & inspection: no tenderness Resp: Effort & Inspection: normal respiratory effort Auscultation: clear to auscultation bilaterally, no rales, no rhonchi and no wheezes Cardio: Jugular venous distension: no JVD Rate: regular rate Rhythm: regular rhythm Heart sounds: no murmurs GI: Inspection: non-distended GI Palp: Yes Soft to palpation and No Tenderness to palpation present (GI) Skin: General skin exam: normal color Neuro: General: moves all extremities, no focal motor deficits and CN's II-XI intact bilaterally Speech: normal speech Extrem: General: normal to inspection Psych: Appearance: well kempt Affect: normal affect Course Vital Signs Vital signs: Vital Signs Temperature 36.8 C 09/22/20 23:15 Pulse Rate 79 09/22/20 23:15 Respiratory Rate 20 09/22/20 23:15 Blood Pressure 165/80 H 09/22/20 23:15 Pulse Oximetry 96 09/22/20 23:15 Temperature 36.3 C L 09/23/20 02:00 Pulse Rate 72 09/23/20 02:00 Respiratory Rate 16 09/23/20 02:00 Blood Pressure 160/82 H 09/23/20 02:00 Pulse Oximetry 99 09/23/20 02:00 MDM - Fall MDM Narrative Medical decision making narrative: She seems to have worsening dementia and is no longer suited for assisted living. The facility should have helped with placement. There is no social media editor here so she will need to be kept here for placement. Medical Records Attestation
[2020-09-23 00:12] LABS: Basophils Percent Auto 0.4 % (0.2-1.2); Eosinophils Absolute Auto 0.1 K/mm3 (0-0.3); Eosinophils Percent Auto 0.6 % (0-4.4); Hematocrit 42.8 % (37.0-47.0); Hemoglobin 14.6 g/dL (12.0-15.0); Immature Granulocyte Absolute 0.07 K/mm3 (0.00-0.031); Immature Granulocyte Percent A 0.7 % (0-0.5); Lymphocytes Absolute Auto 1.86 K/mm3 (0.9-3.2); Lymphocytes Percent Auto 19.5 % (18.3-44.2); Mean Corpuscular HGB Conc 34.1 g/dl (32-36); Mean Corpuscular Volume 90.9 fl (80-100); Mean Platelet Volume 11.5 fl (7.4-10.4); Monocytes Absolute Auto 1.4 K/mm3 (0.1-0.6); Monocytes Percent Auto 15.1 % (2.6-8.5); Neutrophils Absolute Auto 6.1 K/mm3 (1.3-6.7); Neutrophils Percent Auto 63.7 % (45.5-73.1); Platelet Count Result 180 k/mm3 (150-375); Red Blood Count 4.71 M/mm3 (4.2-5.4); Red Cell Distribution Width 12.6 % (11.5-14.5); White Blood Count 9.5 K/mm3 (4.5-10.0)
[2020-09-23 00:37] LABS: Alanine Aminotransferase 27 U/L (4-35); Albumin Level 4.3 g/dL (3.5-5.1); Alkaline Phosphatase 82 U/L (38-126); Anion Gap 10 mmol/L (8-16); Aspartate Amino Transferase 31 U/L (14-36); Bilirubin,Total 1.3 mg/dL (0.2-1.3); Blood Urea Nitrogen 24 mg/dL (7-17); Calcium 10.2 mg/dL (8.4-10.2); Carbon Dioxide 24 mmol/L (22-30); Chloride 106 mmol/L (98-107); Estimated CRCL calculation 37 ml/min; Estimated Glomerular Filt Rate 54; Glucose 131 mg/dL (65-105); Potassium 3.6 mmol/L (3.4-5.0); Sodium 140 mmol/L (137-145)
[2020-09-23 00:42] LABS: Prothrombin Time 13.3 Seconds (11.1-14.7)
[2020-09-23 00:43] LABS: Partial Thromboplastin Time 31.5 SECONDS (22.3-36.8)
[2020-09-23 01:28] VITALS: BP 160/72; PULSE 74; RESP 20; O2SAT 97
[2020-09-23 02:00] VITALS: BP 160/82; PULSE 72; RESP 16; TEMP 36.3; O2SAT 99; BMI 25.8
--- NOTE | 2020-09-23 02:00 | ADMGEN ---
This patient, Dominique Lee, was admitted to [facility] Surg Room 307-01. Patient/family oriented to hospital policies and general routines including ID bracelet, bed and alarms, visiting hours, pain management, procedures, bathroom and other care routines, personal items, smoking policy, room service/diet, and visiting hours. Information on how to activate the Rapid Response Team has been discussed. Patient/Family are encouraged to report perceived risks to care and to ask questions if they do not understand what they are told or what they should do.
--- NOTE | 2020-09-23 02:22 | PM.IMHP ---
H&P: HPI History of Present Illness Date/Time: 09/23/20 02:22 Chief complaint: Dementia with behavioral disturbance, falls Narrative: This is a pleasantly demented 79 year old female with known HTN and hyperlipidemia who presented from [facility] secondary to acute altered mental status. Apparently the patient has been more confused lately and having frequent falls. The Staff at [facility] also reported that the patient was supposedly found yesterday covered in feces, confused, and had to be cleaned up. On my encounter with the patient she does not remember any of this and has no idea why she was sent to the hospital. She tells me that she does not take any home medications although on review of her chart it appears that she is on 6 medications. She also denies any recent fevers, chills, cough, shortness of breath, headache, blurry vision, chest pain, abdominal pain, dysuria, hematuria, nausea, vomiting, diarrhea, LE swelling, or other focal neurological complaints. CT brain was obtained in the ER and was negative for any acute pathology. Routine labs were unremarkable. The patient is oriented to herself and place and currently is following directions without any issues. We have been asked to admit the patient for halfway placement as she is no longer appropriate for assisted living. No other complaints. Review of Systems Review of Systems: All systems reviewed & are unremarkable except as noted in HPI and below PMFSH Past Medical History Medical History (Updated 09/23/20 @ 03:51 by Gilberto Sow MD) Dementia Depression Essential hypertension Hepatitis in the 1970s Hyperlipidemia Osteopenia Traumatic hematoma of left thigh Urge urinary incontinence on Myrbetriq and VESIcare Surgical History Surgical History History of arthroscopy of right knee 2006 History of hysterectomy History of right cataract surgery Family History Family History Unknown Unknown family medical history Social History Social History Social History: Per the patient's report she has lived at [facility] for the last 15 months. She has 2 adult sons . 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 Her son Gilberto as her surrogate decision maker. She has advanced directives in place. Primary care physician: Dr. Hi Jackson Code status: Full code Smoking status: Never smoker Alcohol intake: never Substance use: never Gender identity (if verbalized by the patient): Female Spiritual care concerns: No Meds Home Medications and Allergies Home Medications Medication Instructions Recorded Confirmed Type aspirin 81 mg PO DAILY 07/04/20 09/23/20 History atorvastatin 20 mg PO DAILY 07/04/20 09/23/20 History donepezil 5 mg PO DAILY 07/04/20 09/23/20 History duloxetine 90 mg PO DAILY 07/04/20 09/23/20 History mirabegron [Myrbetriq] 50 mg PO HS 09/23/20 09/23/20 History solifenacin 5 mg PO HS 09/23/20 09/23/20 History Allergies Allergy/AdvReac Type Severity Reaction Status Date / Time oxybutynin [From Ditropan] Allergy Unknown Unknown Verified 09/23/20 02:25 Vital Signs Vital Signs - 24 hr 09/22/20 23:15 09/23/20 01:28 Temperature 36.8 C Pulse Rate 79 74 Respiratory Rate 20 20 Blood Pressure 165/80 H 160/72 H Pulse Oximetry 96 97 Exam Const: General: cooperative, healthy appearing, no acute distress, alert and awake Nutritional Appearance: well nourished Orientation/consciousness: oriented to person, oriented to place and Other orientation findings (demented++ ) HENMT: Head: normal to inspection General nose exam: Normal external nose present Face and sinus: normal facial exam Mouth: Yes Normal oral and palatal mucosa present and Yes oropharynx no
[2020-09-23] MEDS: SODIUM CHLORIDE 0.9% IV 1,000 ML 75 ML IV CONT (04:38)
[2020-09-23 06:00] VITALS: BP 158/80; PULSE 88; RESP 16; TEMP 36.8; O2SAT 100
[2020-09-23 06:25] LABS: Basophils Percent Auto 0.4 % (0.2-1.2); Eosinophils Absolute Auto 0.1 K/mm3 (0-0.3); Hematocrit 38.4 % (37.0-47.0); Hemoglobin 12.9 g/dL (12.0-15.0); Immature Granulocyte Absolute 0.04 K/mm3 (0.00-0.031); Immature Granulocyte Percent A 0.5 % (0-0.5); Lymphocytes Absolute Auto 1.86 K/mm3 (0.9-3.2); Lymphocytes Percent Auto 22.8 % (18.3-44.2); Mean Corpuscular HGB Conc 33.6 g/dl (32-36); Mean Corpuscular Hemoglobin 30.2 pg (26-34); Mean Corpuscular Volume 89.9 fl (80-100); Mean Platelet Volume 11.6 fl (7.4-10.4); Monocytes Absolute Auto 1.5 K/mm3 (0.1-0.6); Monocytes Percent Auto 17.9 % (2.6-8.5); Neutrophils Absolute Auto 4.7 K/mm3 (1.3-6.7); Neutrophils Percent Auto 57.4 % (45.5-73.1); Platelet Count Result 176 k/mm3 (150-375); Red Blood Count 4.27 M/mm3 (4.2-5.4); Red Cell Distribution Width 12.7 % (11.5-14.5); White Blood Count 8.2 K/mm3 (4.5-10.0)
[2020-09-23 06:47] LABS: Anion Gap 3 mmol/L (8-16); Blood Urea Nitrogen 20 mg/dL (7-17); Calcium 9.7 mg/dL (8.4-10.2); Carbon Dioxide 31 mmol/L (22-30); Chloride 105 mmol/L (98-107); Estimated CRCL calculation 44 ml/min; Estimated Glomerular Filt Rate > 60; Glucose 108 mg/dL (65-105); Potassium 3.2 mmol/L (3.4-5.0); Sodium 139 mmol/L (137-145)
[2020-09-23 07:45] LABS: Folic Acid 10.4 ng/mL (2.76->20)
[2020-09-23] MEDS: DULoxetine HCL 30 MG CAPSULE.DR 90 MG PO (08:51)
[2020-09-23] MEDS: ASPIRIN 81 MG CHEWABLE TABLET PO (08:54)
[2020-09-23] MEDS: DONEPEZIL HCL 5 MG TABLET PO (08:54)
[2020-09-23] MEDS: ATORVASTATIN 20 MG TABLET PO (08:54)
[2020-09-23] MEDS: ONDANSETRON INJ 4 MG/2 ML VIAL IV PUSH (11:20)
--- NOTE | 2020-09-23 13:34 | PM.IMPN ---
Progress Note: A&P Assessment and Plan (1) Acute encephalopathy: Code(s): G93.40 - Encephalopathy, unspecified Status: Acute Assessment and Plan: The patient has been placed in observation status. TSH, B12 and folate WNL. CT brain unremarkable for acute intracranial findings. Unclear etiology. She had followed Dr. Newman in [place], but has not established with a Neurologist in this area due to COVID pandemic Neurochecks. Obtain records from Dr. Newman Will consult Neurology for further input Monitor (2) Dementia: Qualifiers: Dementia type: unspecified type Dementia behavioral disturbance: without behavioral disturbance Qualified Code(s): F03.90 - Unspecified dementia without behavioral disturbance Code(s): F03.90 - Unspecified dementia without behavioral disturbance Status: Acute Assessment and Plan: Appears to be worse than from previous hospital stay in 06/2020 upon reviewing EMR. As of yet, no source of infection or acute stroke. Patient recently treated 6 or 7 days with Bactrim for UTI. No leukocytosis or fever with stable VS. This very well may be worsening dementia. continue donepezil. Care coordination consult for placement. Will consult Neurology as stated above (3) Essential hypertension: Code(s): I10 - Essential (primary) hypertension Status: Acute Assessment and Plan: BP 150s sys monitor blood pressure. PRN IV hydralazine w/ parameters ordered. (4) Hyperlipidemia: Qualifiers: Hyperlipidemia type: unspecified Qualified Code(s): E78.5 - Hyperlipidemia, unspecified Code(s): E78.5 - Hyperlipidemia, unspecified Status: Chronic Assessment and Plan: Continue atorvastatin. (5) Urge urinary incontinence: Code(s): N39.41 - Urge incontinence Status: Chronic Assessment and Plan: Continue home meds. Subjective Date/time seen: 09/23/20 13:34 Interval history: Patient is a pleasantly demented 79 year old female with known HTN and hyperlipidemia who is seen in follow up for AMS; she is a resident at [facility]. Patient is A&O to self, month/day of . Pleasantly confused. Answers most questions appropriately, but likely not a reliable historian given her dementia. Upon review of past Hospitalist notes, patient is apparently a bit more confused this hospital stay. No complaints. Having dementia in mind, patient denies f/c/s, cp/palpitations, sob/cough, n/v/d/c, abd pain, dysuria, calf pain/swelling. Review of Systems Review of Systems: All systems reviewed & are unremarkable except as noted in HPI and below Exam Narrative: Exam Narrative: General: Patient resting supine in bed in no acute distress. Pleasantly confused. A&O to self, month/day of . HEENT: Normocephalic, EOMI, oral mucosa moist. Cardiovascular: Rate and rhythm are regular. No notable murmur, rub, or gallop. Respiratory: Crackles in lung bases. Non-labored breathing. Abdomen: Soft, non-tender, non-distended, bowel sounds present. Extremities: Peripheral pulses intact. No edema. NTTP b/l calves Neuro: No focal neurological deficits to casual conversation. face symmetric. Moves all extremities. Speech is clear, but incoherent at times. Objective Data Vital Signs Vital Signs: Last Vital Signs Temp 98.2 F 09/23/20 06:00 Pulse 88 09/23/20 06:00 Resp 16 09/23/20 06:00 BP 158/80 H 09/23/20 06:00 Pulse Ox 100 09/23/20 06:00 Intake/Output Intake/Output: Intake & Output 09/20/20 09/21/20 09/22/20 09/23/20 23:59 23:59 23:59 23:59 Intake Total 340 Output Total 200 Balance 140 Meds/Results Medications: Active Medications Generic Name Dose Route Start Last Admin
[2020-09-23] MEDS: POTASSIUM CHLORIDE 20 MEQ PACKET (FOR LIQUID) 40 MEQ PO (13:42)
[2020-09-23 14:00] VITALS: BP 141/60; PULSE 74; RESP 16; TEMP 36.1; O2SAT 97
[2020-09-23 20:00] VITALS: O2SAT 98
[2020-09-23] MEDS: ACETAMINOPHEN 325 MG TABLET 650 MG PO (20:20)
[2020-09-23] MEDS: MIRABEGRON 50 MG ER TABLET PO (20:21)
[2020-09-23] MEDS: SOLIFENACIN 5 MG TABLET PO (20:21)
[2020-09-23 22:00] VITALS: BP 126/65; PULSE 67; RESP 18; TEMP 36.8; O2SAT 98
[2020-09-24 05:45] VITALS: BP 140/63; PULSE 71; RESP 18; TEMP 36.6; O2SAT 96
[2020-09-24 07:33] LABS: Anion Gap 4 mmol/L (8-16); Blood Urea Nitrogen 17 mg/dL (7-17); Calcium 9.2 mg/dL (8.4-10.2); Carbon Dioxide 26 mmol/L (22-30); Chloride 107 mmol/L (98-107); Estimated CRCL calculation 55 ml/min; Estimated Glomerular Filt Rate > 60; Glucose 99 mg/dL (65-105); Magnesium 2.1 mg/dL (1.6-2.3); Potassium 3.6 mmol/L (3.4-5.0); Sodium 137 mmol/L (137-145)
[2020-09-24] MEDS: ATORVASTATIN 20 MG TABLET PO (09:17)
[2020-09-24] MEDS: DULoxetine HCL 30 MG CAPSULE.DR 90 MG PO (09:17)
[2020-09-24] MEDS: DONEPEZIL HCL 5 MG TABLET PO (09:18)
[2020-09-24] MEDS: ASPIRIN 81 MG CHEWABLE TABLET PO (09:18)
--- NOTE | 2020-09-24 09:39 | WPDNEURCNPN ---
Assessment and Plan Assessment and plan (1) Dementia with behavioral disturbance: Qualifiers: Dementia type: unspecified type Qualified Code(s): F03.91 - Unspecified dementia with behavioral disturbance Code(s): F03.91 - Unspecified dementia with behavioral disturbance Status: Acute Additional Plan ongoing dementia with normal B12 folate TSH negative CT scan of the head treatment will be continued as such if necessary an EEG can be obtained to look for the active seizures Consult date: 09/24/20 Time Seen: 09:00 HPI: Dominique Lee is a 79 year old female 79 years old lady admitted to the hospital for the complaints of behavioral disturbances and falls in addition to history of underlying dementia and ongoing history of comorbid conditions 1. Hypertension 2. Hyperlipidemia 3. Dementia with recent change in the mental status. As mentioned before patient is ongoing history of dementia, depression, hypertension, hyperlipidemia, osteopenia, and bladder dysfunction evaluation up until now documented pending SARS-CoV-2 id UA negative routine lab not significant CT scan of the brain with chronic infarction of the left basal ganglia and cerebellum documented x2 on CT scan Review of Systems Review of Systems: All systems reviewed & are unremarkable except as noted in HPI and below PMFSH Past Medical History Medical History Dementia Depression Essential hypertension Hepatitis in the 1970s Hyperlipidemia Osteopenia Traumatic hematoma of left thigh Urge urinary incontinence on Myrbetriq and VESIcare Surgical History Surgical History History of arthroscopy of right knee 2006 History of hysterectomy History of right cataract surgery Family History Family History Unknown Unknown family medical history Social History Social History Social History: Per the patient's report she has lived at [facility] living for the last 15 months. She has 2 adult sons . 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 Her son Gilberto as her surrogate decision maker. She has advanced directives in place. Primary care physician: Dr. Hi Jackson Code status: Full code Smoking status: Never smoker Alcohol intake: never Substance use: never Gender identity (if verbalized by the patient): Female Spiritual care concerns: No Meds Home Medications and Allergies Home Medications Medication Instructions Recorded Confirmed Type aspirin 81 mg PO DAILY 07/04/20 09/23/20 History atorvastatin 20 mg PO DAILY 07/04/20 09/23/20 History donepezil 5 mg PO DAILY 07/04/20 09/23/20 History duloxetine 90 mg PO DAILY 07/04/20 09/23/20 History mirabegron [Myrbetriq] 50 mg PO HS 09/23/20 09/23/20 History solifenacin 5 mg PO HS 09/23/20 09/23/20 History Allergies Allergy/AdvReac Type Severity Reaction Status Date / Time oxybutynin [From Ditropan] Allergy Unknown Unknown Verified 09/23/20 02:25 Vital Signs Vital Signs - 24 hr 09/23/20 14:00 09/23/20 20:00 09/23/20 22:00 Temperature 36.1 C L 36.8 C Pulse Rate 74 67 Respiratory Rate 16 18 Blood Pressure 141/60 H 126/65 Pulse Oximetry 97 98 98 09/24/20 05:45 Temperature 36.6 C Pulse Rate 71 Respiratory Rate 18 Blood Pressure 140/63 Pulse Oximetry 96 Exam Narrative: Exam Narrative: examination reveals her to be awake in no obvious acute distress normocephalic with no cranial bruit ear nose throat examination normal neck is supple with no cervical bruit no thyromegaly no lymphadenopathy heart regular with no murmur lungs clear to auscultation no rhonchi or crepitation abdomen is soft nontender normal bowel sounds and neurological examination revealed her to have obviously dementia pupils round r
[2020-09-24 13:28] VITALS: BMI 25.8
[2020-09-24 14:00] VITALS: BP 144/74; PULSE 72; RESP 14; TEMP 36.6; O2SAT 98
--- NOTE | 2020-09-24 15:45 | PM.IMPN ---
Progress Note: A&P Assessment and Plan (1) Acute encephalopathy: Code(s): G93.40 - Encephalopathy, unspecified Status: Acute Assessment and Plan: The patient has been placed in observation status. TSH, B12 and folate WNL. CT brain unremarkable for acute intracranial findings. Unclear etiology. She had followed Dr. Newman in [place], [place] but has not established with a Neurologist in this area due to COVID pandemic Neurochecks. Obtain records from Dr. Newman Neurology following and appreciate input; likely outpatient follow up Monitor Awaiting COVID testing to return. Per lab, this will not be completed until ~1900 tonight. [facility] accept patient if covid testing negative; likely discharge tomorrow pending results tonight (2) Dementia: Qualifiers: Dementia type: unspecified type Dementia behavioral disturbance: without behavioral disturbance Qualified Code(s): F03.90 - Unspecified dementia without behavioral disturbance Code(s): F03.90 - Unspecified dementia without behavioral disturbance Status: Acute Assessment and Plan: Initially appeared to be worse than from previous hospital stay in 06/2020 upon reviewing EMR. As of yet, no source of infection or acute stroke. Patient recently treated 6 or 7 days with Bactrim for UTI. No leukocytosis or fever with stable VS. This very well may be worsening dementia. continue donepezil. Care coordination consult for placement. Neurology following and appreciate input (3) Essential hypertension: Code(s): I10 - Essential (primary) hypertension Status: Acute Assessment and Plan: BP 140s sys monitor blood pressure. PRN IV hydralazine w/ parameters ordered. (4) Hyperlipidemia: Qualifiers: Hyperlipidemia type: unspecified Qualified Code(s): E78.5 - Hyperlipidemia, unspecified Code(s): E78.5 - Hyperlipidemia, unspecified Status: Chronic Assessment and Plan: Continue atorvastatin. (5) Urge urinary incontinence: Code(s): N39.41 - Urge incontinence Status: Chronic Assessment and Plan: Continue home meds. Subjective Date/time seen: 09/24/20 15:45 Interval history: Patient is a pleasantly demented 79 year old female with known HTN and hyperlipidemia who is seen in follow up for AMS; she is a resident at [facility]. Patient is A&O to self, president and hospital which is an improvement from yesterday. Pleasantly confused. Answers most questions appropriately, but likely not a reliable historian given her dementia. No complaints. Patient denies f/c/s, cp/palpitations, sob/cough, n/v/d/c, abd pain, dysuria, calf pain/swelling. Review of Systems Review of Systems: All systems reviewed & are unremarkable except as noted in HPI and below Exam Narrative: Exam Narrative: General: Patient resting supine in bed in no acute distress. Pleasantly confused. A&O to self, president and hospital; improvement from yesterday HEENT: Normocephalic, EOMI, oral mucosa moist. Cardiovascular: Rate and rhythm are regular. No notable murmur, rub, or gallop. Respiratory: Crackles in lung bases. Non-labored breathing. Abdomen: Soft, non-tender, non-distended, bowel sounds present. Extremities: Peripheral pulses intact. No edema. NTTP b/l calves Neuro: No focal neurological deficits to casual conversation. face symmetric. Moves all extremities. Speech is clear, but incoherent at times;improved from yesterday Objective Data Vital Signs Vital Signs: Last Vital Signs Temp 97.8 F 09/24/20 14:00 Pulse 72 09/24/20 14:00 Resp 14 09/24/20 14:00 BP 144/74 H 09/24/20 14:00 Pulse Ox 98 09/24/20 14:00 Intake/Output Intake/Output: I
[2020-09-24 18:52] LABS: SARS-CoV-2 RNA PCR Negative
[2020-09-24] MEDS: SOLIFENACIN 5 MG TABLET PO (21:03)
[2020-09-24] MEDS: MIRABEGRON 50 MG ER TABLET PO (21:03)
[2020-09-24 21:58] VITALS: BP 159/70; PULSE 68; RESP 18; TEMP 36.6; O2SAT 98
[2020-09-25 05:59] VITALS: BP 163/74; PULSE 77; RESP 18; TEMP 36.1; O2SAT 94
[2020-09-25 06:31] LABS: Anion Gap 4 mmol/L (8-16); Blood Urea Nitrogen 13 mg/dL (7-17); Calcium 9.3 mg/dL (8.4-10.2); Carbon Dioxide 27 mmol/L (22-30); Chloride 106 mmol/L (98-107); Estimated CRCL calculation 49 ml/min; Estimated Glomerular Filt Rate > 60; Glucose 106 mg/dL (65-105); Magnesium 2.2 mg/dL (1.6-2.3); Potassium 3.8 mmol/L (3.4-5.0); Sodium 137 mmol/L (137-145)
[2020-09-25] MEDS: DONEPEZIL HCL 5 MG TABLET PO (10:25)
[2020-09-25] MEDS: DULoxetine HCL 30 MG CAPSULE.DR 90 MG PO (10:25)
[2020-09-25] MEDS: ATORVASTATIN 20 MG TABLET PO (10:25)
[2020-09-25] MEDS: ASPIRIN 81 MG CHEWABLE TABLET PO (10:25)
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
[2020-09-25 14:00] VITALS: BP 157/61; PULSE 73; RESP 18; TEMP 36.6; O2SAT 95
[2020-09-25] MEDS: SOLIFENACIN 5 MG TABLET PO (21:05)
[2020-09-25] MEDS: MIRABEGRON 50 MG ER TABLET PO (21:05)
[2020-09-25 21:38] LABS: Glucose Point of Care 116 (65-105)
[2020-09-25 22:00] VITALS: BP 148/76; PULSE 73; RESP 18; TEMP 36.9; O2SAT 97
[2020-09-26 05:58] VITALS: BP 144/72; PULSE 79; RESP 16; TEMP 37.6; O2SAT 96
[2020-09-26 08:00] VITALS: PULSE 79; RESP 16; O2SAT 96
--- NOTE | 2020-09-26 09:31 | WPDNEUROLOGY ---
Neurology EEG Report General Information Date of Study: 09/26/20 TEST eeg DIAGNOSIS change in mental status CONDITION OF RECORDING change in the mental status EEG NUMBER [id number] CLINICAL HISTORY altered mental status EEG DESCRIPTION whole record consists of very low-voltage beta activity admixed with medium to high voltage 2 to 3 hertz per second delta activity. Bilateral symmetrical sleep activity seen during brief periods of sleep. non paroxysmal, nonfocal, nonlateralizing. IMPRESSION abnormal record due to the presence of bihemispheric theta and delta activity with no evidence of any paroxysmal discharge, these findings are suggestive of organic or metabolic encephalopathy. clinical correlation recommended .there is no evidence of paroxysmal activityThroughout the tracing.
[2020-09-26] MEDS: DULoxetine HCL 30 MG CAPSULE.DR 90 MG PO (10:20)
[2020-09-26] MEDS: ASPIRIN 81 MG CHEWABLE TABLET PO (10:20)
[2020-09-26] MEDS: ATORVASTATIN 20 MG TABLET PO (10:20)
[2020-09-26] MEDS: DONEPEZIL HCL 5 MG TABLET PO (10:20)
[2020-09-26 14:00] VITALS: BP 140/71; PULSE 82; RESP 16; TEMP 37; O2SAT 98
[2020-09-26] MEDS: BISACODYL 10 MG SUPPOSITORY RECTAL (14:59)
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
--- NOTE | 2020-09-26 17:01 | PC.NURSE ---
Called [facility] [employer] about pt still not having bowel movement after drinking prune juice and suppository. Laney is going to add fiber for later today. Also if pt has BM then hold docusate. Transport is pending for 09/27/20
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
[2020-09-26] MEDS: polyethylene glycoL 3350 17 GM POWD.PACK PO (18:48)
[2020-09-26] MEDS: PSYLLIUM POWDER PACKET 1 PACKET PO (18:49)
[2020-09-26] MEDS: DOCUSATE SODIUM 100 MG CAPSULE PO (21:33)
[2020-09-26] MEDS: SENNA/DOCUSATE SODIUM TABLET 1 TAB PO (21:34)
[2020-09-26] MEDS: MIRABEGRON 50 MG ER TABLET PO (21:34)
[2020-09-26] MEDS: SOLIFENACIN 5 MG TABLET PO (21:35)
[2020-09-26 22:00] VITALS: BP 146/68; PULSE 78; RESP 16; TEMP 36.6; O2SAT 98
[2020-09-27 06:00] VITALS: BP 130/78; PULSE 70; RESP 16; TEMP 36.8; O2SAT 97
[2020-09-27] MEDS: ATORVASTATIN 20 MG TABLET PO (09:11)
[2020-09-27] MEDS: DONEPEZIL HCL 5 MG TABLET PO (09:11)
[2020-09-27] MEDS: ASPIRIN 81 MG CHEWABLE TABLET PO (09:11)
[2020-09-27] MEDS: DOCUSATE SODIUM 100 MG CAPSULE PO ×2 (09:11→20:27)
[2020-09-27] MEDS: DULoxetine HCL 30 MG CAPSULE.DR 90 MG PO (09:12)
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
[2020-09-27] MEDS: BISACODYL 10 MG SUPPOSITORY RECTAL (11:14)
[2020-09-27] MEDS: MAGNESIUM CITRATE 300 ML BTL 150 ML PO (11:14)
[2020-09-27 11:52] LABS: Basophils Percent Auto 0.4 % (0.2-1.2); Eosinophils Absolute Auto 0.1 K/mm3 (0-0.3); Hemoglobin 14.6 g/dL (12.0-15.0); Immature Granulocyte Absolute 0.03 K/mm3 (0.00-0.031); Immature Granulocyte Percent A 0.4 % (0-0.5); Lymphocytes Absolute Auto 1.31 K/mm3 (0.9-3.2); Lymphocytes Percent Auto 16.4 % (18.3-44.2); Mean Corpuscular Hemoglobin 30.7 pg (26-34); Mean Corpuscular Volume 90.5 fl (80-100); Mean Platelet Volume 11.2 fl (7.4-10.4); Monocytes Percent Auto 12.5 % (2.6-8.5); Neutrophils Absolute Auto 5.6 K/mm3 (1.3-6.7); Neutrophils Percent Auto 69.3 % (45.5-73.1); Platelet Count Result 247 k/mm3 (150-375); Red Blood Count 4.75 M/mm3 (4.2-5.4); Red Cell Distribution Width 12.6 % (11.5-14.5)
[2020-09-27 12:03] LABS: Alanine Aminotransferase 19 U/L (4-35); Alkaline Phosphatase 72 U/L (38-126); Anion Gap 8 mmol/L (8-16); Aspartate Amino Transferase 24 U/L (14-36); Blood Urea Nitrogen 18 mg/dL (7-17); Calcium 9.8 mg/dL (8.4-10.2); Carbon Dioxide 28 mmol/L (22-30); Chloride 102 mmol/L (98-107); Estimated CRCL calculation 40 ml/min; Estimated Glomerular Filt Rate 54; Glucose 128 mg/dL (65-105); Potassium 3.8 mmol/L (3.4-5.0); Sodium 138 mmol/L (137-145)
[2020-09-27 14:00] VITALS: BP 123/58; PULSE 87; RESP 16; TEMP 36.3; O2SAT 95
--- NOTE | 2020-09-27 14:49 | PCDIET ---
Nutrition Follow-Up Complete: Inadequate Oral Intake as related to dementia as evidenced by decreased oral intake. Meet estimated nutritional needs Goal: Goal met; Continue goal Pt current nutrition is Heart Healthy + Ensure Enlive BID Nutrition recommendation: agree Last recorded weight is 74.8 kg, steady Bowel Motility: No BM noted since the 6th; agree with metamucil, colace, senna Labs Reviewed: GFR 54, Glucose 128, Monocytes 12.5 Meds Noted: See above Additional Notes: Pt with improved appetite. PO intake 75% over last three meals. Pt confused. We will continue to monitor for adequate intake every five every 5 days.
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
[2020-09-27] MEDS: PSYLLIUM POWDER PACKET 1 PACKET PO (18:04)
[2020-09-27 20:04] LABS: SARS-CoV-2 RNA PCR Negative
[2020-09-27] MEDS: MIRABEGRON 50 MG ER TABLET PO (20:27)
[2020-09-27] MEDS: SOLIFENACIN 5 MG TABLET PO (20:27)
[2020-09-27] MEDS: SENNA/DOCUSATE SODIUM TABLET 1 TAB PO (20:28)
[2020-09-27 21:45] VITALS: BP 144/66; PULSE 81; RESP 16; TEMP 36.4; O2SAT 98
[2020-09-28 05:22] VITALS: BP 144/66; PULSE 84; RESP 16; TEMP 36.6; O2SAT 96
[2020-09-28 06:28] LABS: Hematocrit 37.3 % (37.0-47.0); Hemoglobin 12.5 g/dL (12.0-15.0); Mean Corpuscular HGB Conc 33.5 g/dl (32-36); Mean Corpuscular Hemoglobin 29.8 pg (26-34); Mean Platelet Volume 11.5 fl (7.4-10.4); Platelet Count Result 222 k/mm3 (150-375); Red Blood Count 4.19 M/mm3 (4.2-5.4); Red Cell Distribution Width 12.6 % (11.5-14.5); White Blood Count 6.9 K/mm3 (4.5-10.0)
[2020-09-28 06:43] LABS: Anion Gap 5 mmol/L (8-16); Blood Urea Nitrogen 23 mg/dL (7-17); Calcium 9.3 mg/dL (8.4-10.2); Carbon Dioxide 28 mmol/L (22-30); Chloride 103 mmol/L (98-107); Estimated CRCL calculation 44 ml/min; Estimated Glomerular Filt Rate > 60; Glucose 102 mg/dL (65-105); Lactate Dehydrogenase 575 U/L (313-618); Potassium 3.9 mmol/L (3.4-5.0); Sodium 136 mmol/L (137-145)
[2020-09-28] MEDS: DULoxetine HCL 30 MG CAPSULE.DR 90 MG PO (09:28)
[2020-09-28] MEDS: ASPIRIN 81 MG CHEWABLE TABLET PO (09:29)
[2020-09-28] MEDS: DOCUSATE SODIUM 100 MG CAPSULE PO ×2 (09:29→20:04)
[2020-09-28] MEDS: DONEPEZIL HCL 5 MG TABLET PO (09:29)
[2020-09-28] MEDS: ATORVASTATIN 20 MG TABLET PO (09:29)
[2020-09-28] MEDS: polyethylene glycoL 3350 17 GM POWD.PACK PO (09:34)
[2020-09-28 14:00] VITALS: BP 135/65; PULSE 76; RESP 16; TEMP 36.7; O2SAT 96
[2020-09-28] MEDS: DOCUSATE SODIUM 400 MG/400 ML ENEMA RECTAL (14:05)
[2020-09-28] MEDS: PSYLLIUM POWDER PACKET 1 PACKET PO (17:12)
--- NOTE | 2020-09-28 17:57 | PM.IMPN ---
Progress Note: A&P Assessment and Plan (1) Constipation in female: Code(s): K59.00 - Constipation, unspecified Status: Acute Assessment and Plan: The patient had been made NPO after episode of nausea and vomiting 09/27/2020. CT of the chest abdomen pelvis demonstrated no ideology for the patient's symptoms. The patient has not had any further nausea or vomiting. Yesterday will advance diet back to a regular diet. 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 Colace enema was attempted without any real results. Patient has been on stool softeners Dulcolax suppository. Will add MiraLax. (2) Acute encephalopathy: Code(s): G93.40 - Encephalopathy, unspecified Status: Acute Assessment and Plan: TSH, B12 and folate levels within normal limits. Records obtained from patient's neurologist in [place]. The patient did have evidence of progressive dementia at that time. Patient was evaluated by Neurology here in EEG demonstrated changes consistent with metabolic encephalopathy likely related to the patient's dementia.. Patient will need to follow-up with neurology as outpatient. Her symptoms are most consistent with advancing dementia. Patient has placement at [facility] we are just awaiting patient to have a bowel movement. (3) Dementia with behavioral disturbance: Qualifiers: Dementia type: unspecified type Qualified Code(s): F03.91 - Unspecified dementia with behavioral disturbance Code(s): F03.91 - Unspecified dementia with behavioral disturbance Status: Acute Assessment and Plan: . The patient has been accepted to [facility]. (4) Urge urinary incontinence: Code(s): N39.41 - Urge incontinence Status: Chronic Assessment and Plan: Will resume Myrbetriq when patient is discharged. (5) Essential hypertension: Code(s): I10 - Essential (primary) hypertension Status: Acute Assessment and Plan: Blood pressures for the most part of been stable in the 120s to mid 140s. She has not required any of p.r.n. hydralazine since September 23. (6) Hyperlipidemia: Qualifiers: Hyperlipidemia type: unspecified Qualified Code(s): E78.5 - Hyperlipidemia, unspecified Code(s): E78.5 - Hyperlipidemia, unspecified Status: Chronic Assessment and Plan: Continue home meds. Subjective Date/time seen: 09/28/20 17:57 Patient has small bowel movement 09/27/2020 after magnesium citrate. She still reports abdominal pain. The patient is only oriented to person. Review of Systems Review of Systems: ROS unobtainable: Yes unobtainable due to medical condition (Dementia) Exam Narrative: Exam Narrative: PHYSICAL EXAM: WEIGHT 74.8 kg BMI 25.8 General: No acute distress, well-developed well-nourished HEENT: Mucous membranes are tacky, no oral pharyngeal erythema Respiratory: Clear to auscultation bilaterally, no increased work of breathing Cardiovascular: Regular rate, regular rhythm Gastrointestinal: Distended, generalized tenderness, normoactive bowel sounds Skin: Generalized pallor, non jaundice Musculoskeletal: Age-related arthritic changes, no edema Neurological: Alert and oriented to person only, will answer direct questions but reliability questionable Psychiatric: Intermittently cooperative, flat affect : Incontinent of urine Hematologic/lymphatic: No petechiae or bruising Objective Data Vital Signs Vital Signs: Vital Signs - 24 hr 09/27/20 21:45 09/28/20 05:22 09/28/20 14:00 Temperature 97.6 F 97.8 F 98.0 F Pulse Rate 81 84 76 Respiratory Rate 16 16 16 Blood Pressure 144/66 H 144/66 H 135/65 Pulse Oximetry 98 96 96 Intake/Output Intake/Output: Intake & Output 09/25/20 09/26/20 09/27/20 09/28/20 23:59 23:59 23:59 23:59 Intake Total 450 1000 1170 940 Output Total 450 Balance 494 581 6320 940 Meds/Results Medications: Active Medicatio
[2020-09-28 20:00] VITALS: PULSE 81; RESP 16; O2SAT 95
[2020-09-28] MEDS: MIRABEGRON 50 MG ER TABLET PO (20:04)
[2020-09-28] MEDS: SOLIFENACIN 5 MG TABLET PO (20:04)
[2020-09-28] MEDS: SENNA/DOCUSATE SODIUM TABLET 1 TAB PO (20:04)
[2020-09-28 21:58] VITALS: BP 138/54; PULSE 81; RESP 16; TEMP 36.3; O2SAT 95
[2020-09-29 06:00] VITALS: BP 142/67; PULSE 67; RESP 18; TEMP 36.2; O2SAT 93
[2020-09-29 08:00] VITALS: PULSE 85; RESP 20; O2SAT 100
--- NOTE | 2020-09-29 08:31 | PM.IMPN ---
Progress Note: A&P Assessment and Plan (1) Dementia with behavioral disturbance: Qualifiers: Dementia type: unspecified type Qualified Code(s): F03.91 - Unspecified dementia with behavioral disturbance Code(s): F03.91 - Unspecified dementia with behavioral disturbance Status: Acute Assessment and Plan: Stop anticholinergics Avoid sedatives, narcotics Continue donepezil Await admission to [facility] (2) Acute encephalopathy: Code(s): G93.40 - Encephalopathy, unspecified Status: Acute (3) Urge urinary incontinence: Code(s): N39.41 - Urge incontinence Status: Chronic (4) Hypertension: Qualifiers: Hypertension type: unspecified Qualified Code(s): I10 - Essential (primary) hypertension Code(s): I10 - Essential (primary) hypertension Status: Acute (5) Constipation in female: Code(s): K59.00 - Constipation, unspecified Status: Acute Assessment and Plan: . Anticholinergics Continue bowel regimen Subjective Date/time seen: 09/29/20 08:31 Interval history: 79-year-old female admitted September 23 due to increasing confusion and falls. On the day of admission she was found covered in feces. She was residing at assisted living facility and is no longer appropriate for that level of care. Exam Narrative: Exam Narrative: HEENT: EOMI, PERRL, sclerae nonicteric, pharyngeal mucosa pink and intact NECK: No JVD, adenopathy, or thyromegaly CHEST: Clear to auscultation. Normal effort. HEART: NL S1/S2, regular, 2/6 ANTHONY at RUSB ABDOMEN: BS+, soft, nontender, no mass, no bruits EXTREMITIES: No cyanosis, edema, or clubbing NEUROLOGIC: CN intact and symmetric to inspection. MUSCULOSKELETAL: Tone and strength symmetric. PSYCH: Alert. Oriented to person. Objective Data Vital Signs Vital Signs: Vital Signs - 24 hr 09/28/20 14:00 09/28/20 20:00 09/28/20 21:58 Temperature 98.0 F 97.3 F L Pulse Rate 76 81 81 Respiratory Rate 16 16 16 Blood Pressure 135/65 138/54 L Pulse Oximetry 96 95 95 09/29/20 06:00 Temperature 97.1 F L Pulse Rate 67 Respiratory Rate 18 Blood Pressure 142/67 H Pulse Oximetry 93 Intake/Output Intake/Output: Intake & Output 09/26/20 09/27/20 09/28/20 09/29/20 23:59 23:59 23:59 23:59 Intake Total 1000 1170 1180 100 Output Total 450 Balance 550 1170 1180 100 Meds/Results Medications: Active Medications Generic Name Dose Route Start Last Admin Trade Name Freq PRN Reason Stop Dose Admin Acetaminophen 650 mg 09/23/20 03:46 09/23/20 20:20 Acetaminophen 325 Mg Tablet PO 650 mg Q4H PRN Administration Mild Pain (1-3) or Fever Aspirin 81 mg 09/23/20 08:00 09/28/20 09:29 Aspirin 81 Mg Chewable Tablet PO 81 mg DAILY@0800 LUIS M Administration Atorvastatin Calcium 20 mg 09/23/20 09:00 09/28/20 09:29 Atorvastatin 20 Mg Tablet PO 20 mg DAILY LUIS M Administration Docusate Sodium 100 mg 09/26/20 21:00 09/28/20 20:04 Docusate Sodium 100 Mg Capsule PO 100 mg Q12HR LUIS M Administration Donepezil HCl 5 mg 09/23/20 09:00 09/28/20 09:29 Donepezil Hcl 5 Mg Tablet PO 5 mg DAILY LUIS M Administration Duloxetine HCl 90 mg 09/23/20 09:00 09/28/20 09:28 Duloxetine Hcl 30 Mg Capsule.Dr PO 90 mg DAILY LUIS M Administration Hydralazine HCl 10 mg 09/23/20 03:49 Hydralazine Hcl 20 Mg/Ml Vial IV PUSH Q8H PRN see comment Mirabegron 50 mg 09/23/20 21:00 09/28/20 20:04 Mirabegron 50 Mg Er Tablet PO 50 mg HS LUIS M Administration Polyethylene Glycol 17 gm 09/28/20 09:00 09/28/20 09:34 Polyethylene Glycol 3350 17 Gm Powd.Pack PO 17 gm QAM LUIS M Administration Psyllium Hydrophilic Mucilloid 1 packet 09/26/20 19:00 09/28/20 17:12 Psyllium Powder Packet PO 1 packet DAILY@1900 LUIS M Administration Senna/Docusate Sodium 1 tab 09/26/20 21:00 09/28/20 20:04 Senna/Docusate Sodium Tablet PO
[2020-09-29] MEDS: polyethylene glycoL 3350 17 GM POWD.PACK PO (08:45)
[2020-09-29] MEDS: DOCUSATE SODIUM 100 MG CAPSULE PO ×2 (08:45→20:14)
[2020-09-29] MEDS: DONEPEZIL HCL 5 MG TABLET PO (08:45)
[2020-09-29] MEDS: ATORVASTATIN 20 MG TABLET PO (08:45)
[2020-09-29] MEDS: DULoxetine HCL 30 MG CAPSULE.DR 90 MG PO (08:45)
[2020-09-29] MEDS: ASPIRIN 81 MG CHEWABLE TABLET PO (08:45)
[2020-09-29] MEDS: MAGNESIUM CITRATE 300 ML BTL 150 ML PO (11:44)
[2020-09-29] MEDS: SENNOSIDES 8.8 MG/5 ML SYRUP PO (11:45)
[2020-09-29 14:00] VITALS: BP 102/64; PULSE 85; RESP 20; TEMP 36.4; O2SAT 100
[2020-09-29] MEDS: BISACODYL 10 MG SUPPOSITORY RECTAL (15:00)
--- NOTE | 2020-09-29 16:53 | PC.NURSE ---
patient has had all laxatives and softners ordered today by Dr. Joshua, only results were approx tablespoon of soft stool. discharge orders were put in if patient had a bowel movement. i spoke with Dr. Joshua and updated him on all results, he cancelled discharge at this time.
[2020-09-29] MEDS: SENNA/DOCUSATE SODIUM TABLET 1 TAB PO (20:14)
[2020-09-29] MEDS: PSYLLIUM POWDER PACKET 1 PACKET PO (20:14)
[2020-09-29 20:16] LABS: SARS-CoV-2 RNA PCR Negative
[2020-09-29 22:00] VITALS: BP 159/69; PULSE 72; RESP 18; TEMP 36.4; O2SAT 97
[2020-09-30 06:00] VITALS: BP 154/86; PULSE 65; RESP 18; TEMP 36.7; O2SAT 100
[2020-09-30 08:00] VITALS: PULSE 65; RESP 18; O2SAT 100
--- NOTE | 2020-09-30 10:26 | PM.DS ---
DS: Admitting Diagnosis Admitting Diagnosis Admitting Diagnosis: Dementia with behavioral disturbance, falls DS: Discharge Diagnosis Discharge Diagnosis (1) Dementia with behavioral disturbance: Qualifiers: Dementia type: unspecified type Qualified Code(s): F03.91 - Unspecified dementia with behavioral disturbance Code(s): F03.91 - Unspecified dementia with behavioral disturbance Status: Acute Assessment and Plan: Stopped anticholinergics Avoid sedatives, narcotics Continue donepezil To [facility] (2) Acute encephalopathy: Code(s): G93.40 - Encephalopathy, unspecified Status: Acute Assessment and Plan: Resolved (3) Urge urinary incontinence: Code(s): N39.41 - Urge incontinence Status: Chronic Assessment and Plan: Avoid anticholinergics (4) Hypertension: Qualifiers: Hypertension type: unspecified Qualified Code(s): I10 - Essential (primary) hypertension Code(s): I10 - Essential (primary) hypertension Status: Acute Assessment and Plan: Stable (5) Constipation in female: Code(s): K59.00 - Constipation, unspecified Status: Acute Assessment and Plan: Avoid anticholinergics Continue bowel regimen DS: Summary Hospital Course Reason for hospitalization: falls Hospital Course: 79-year-old female admitted September 23 due to increasing confusion and falls. On the day of admission she was found covered in feces. She was residing at assisted living facility and is no longer appropriate for that level of care. Course in hospital was uneventful and provided an opportunity for medication reduction. Time Spent with Patient Time attestation: Total time spent providing and/or coordinating discharge services: 35 min Exam Narrative: Exam Narrative: HEENT: EOMI, PERRL, sclerae nonicteric, pharyngeal mucosa pink and intact NECK: No JVD, adenopathy, or thyromegaly CHEST: Clear to auscultation. Normal effort. HEART: NL S1/S2, regular, 2/6 ANTHONY at RUSB ABDOMEN: BS+, soft, nontender, no mass, no bruits EXTREMITIES: No cyanosis, edema, or clubbing NEUROLOGIC: CN intact and symmetric to inspection. MUSCULOSKELETAL: Tone and strength symmetric. PSYCH: Alert. Oriented to person. DS: Data Data Completed and Pending Labs on day of discharge: Labs from last 24 hours 09/29/20 02:13 SARS-CoV-2 RNA (RT-PCR) Negative Discharge Plan Discharge Consulting providers: Romulo Bagley Discharging Clinician: Pj Joshua Patient Disposition: NH [facility] Activity: may shower Diet: regular Discharge Instructions: Needs assistance with all meals and oral hydration. Feeder at times. Patient becomes constipated easily. Track and document BMs. Goal is a BM every day or every other day. Continue scheduled Colace BID and Senna Q HS and DAILY Metamucil at 7pm. Continue PRN Dulcolax Suppository and PRN Miralax. PCP or Facility physician may continue PT/OT to evaluate and treat. Since patient is not verbal enough to inform nursing staff of urinary s/s and a poor health historian due to severe dementia - Dominique needs a PRN Urine Analysis with Reflex or Urine Culture order in place for staff to collect urine if patient has Altered Mental Status, complains of burning urination, having frequent or small voids. Staff to assist with all ADLs. May only shower with staff present and standing by. Must use shower chair. Encourage adequate oral hydration, monitor Intake /output, and provide additional beverages and dietary supplements. Schedule Follow Up with PCP for patient to be seen in 3-14 days. Schedule Follow Up visit with Neurologist if patient or family /POA wants further Dementia monitoring and treatment. Patient Instructions: Dementia (GEN), Encephalopathy (DC) Patient Language: Uzbek Stand Alone Forms: General Discharge Information, Penitentiary Discharge
[2020-09-30] MEDS: ASPIRIN 81 MG CHEWABLE TABLET PO (10:46)
[2020-09-30] MEDS: DOCUSATE SODIUM 100 MG CAPSULE PO (10:46)
[2020-09-30] MEDS: ATORVASTATIN 20 MG TABLET PO (10:46)
[2020-09-30] MEDS: DONEPEZIL HCL 5 MG TABLET PO (10:47)
[2020-09-30] MEDS: polyethylene glycoL 3350 17 GM POWD.PACK PO (10:48)
[2020-09-30] MEDS: DULoxetine HCL 30 MG CAPSULE.DR 90 MG PO (10:48)
== END 2020-09-30 14:30 | DRG 884 ==
LOC: ANHED 09-23 01:19 → ANH3MEDSUR 09-23 01:34
PROVIDERS: Nurse Practitioner; Physician Assistant; Student in an Organized Health Care Education/Training Program; Admitting Provider Family Medicine; Emergency Provider Emergency Medicine; PCP Student in an Organized Health Care Education/Training Program; Visit Provider Internal Medicine
DX: F03.91 Unspecified dementia, unspecified severity, with behavioral disturbance (principal); G93.40 Encephalopathy, unspecified; I10 Essential (primary) hypertension; E78.5 Hyperlipidemia, unspecified; N39.41 Urge incontinence; Z20.828 Contact with and (suspected) exposure to other viral communicable diseases
CPT/HCPCS: 36415; 70450; 71046; 71250; 74018; 74176; 80048; 80053; 82607; 82746; 83615; 83735; 84443; 85025; 85027; 85610; 85730; 87635; 95816; 96361; 97110; 97116; 97162; 97165; 97530; 97535; 99285; A9270; C9803; G0378; J2405; J7030; U0003

== ENCOUNTER 2023-12-09 22:52 | Emergency (ER) | payer MEDICARE, SELFPAY ==
--- NOTE | ~2023-12-09 | XR_ITS ---
Clinical Indication: Failure to thrive AP and lateral views of the chest: Comparison: 09/26/2020 Findings: The lungs are clear, without evidence of focal consolidation or pleural effusion. Cardiome diastinal silhouette is within normal limits. Bones and soft tissues are unremarkable. Impression: Normal chest. Reviewed, dictated and finalized at [facility]. CURE WORKER Impression: Normal chest.
--- NOTE | ~2023-12-09 | XR_ITS ---
Supine and upright views of the abdomen Clinical history: Constipation COMPARISON: 09/26/2020 Findings: Bowel gas pattern is nonspecific. Moderate to large amount of stool present. No evidence fo r obstruction or free air. No abnormal mass lesion or calcification is seen. Osseous structures are i ntact. Impression: Moderate to large amount of stool. Correlate for constipation. Reviewed, dictated and finalized at location . D ASSEMBLY SUPERVISOR Impression: Moderate to large amount of stool. Correlate for constipation.
[2023-12-09 22:38] VITALS: BP 130/62; PULSE 69; RESP 12; O2SAT 97
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
--- NOTE | 2023-12-10 00:23 | ECG_ITS ---
Measurements Intervals [place] Rate: 61 P: 45 [place]: 183 QRS: 27 QRSD: 94 T: 47 QT: 437 QTc: 440 Interpretive Statements SINUS RHYTHM NORMAL ECG COMPARED TO ECG 09/21/2020 20:03:12 NO SIGNIFICANT CHANGES Electronically Signed On 12-10-2023 12:23:46 [employer] by Ashkan Payne M.D.
[2023-12-10 01:25] VITALS: BP 138/62; PULSE 61; RESP 15; O2SAT 100
[2023-12-10 01:28] LABS: Basophils Percent Auto 0.3 % (0.2-1.2); Eosinophils Percent Auto 0.4 % (0-4.4); Hematocrit 37.2 % (37.0-47.0); Hemoglobin 12.3 g/dL (12.0-15.0); Immature Granulocyte Absolute 0.09 K/mm3 (0.00-0.031); Immature Granulocyte Percent A 1.2 % (0-0.5); Lymphocytes Absolute Auto 2.57 K/mm3 (0.9-3.2); Lymphocytes Percent Auto 35.2 % (18.3-44.2); Mean Corpuscular HGB Conc 33.1 g/dl (32-36); Mean Corpuscular Hemoglobin 30.9 pg (26-34); Mean Corpuscular Volume 93.5 fl (80-100); Mean Platelet Volume 12.4 fl (7.4-10.4); Monocytes Absolute Auto 1.2 K/mm3 (0.1-0.6); Monocytes Percent Auto 15.7 % (2.6-8.5); Neutrophils Absolute Auto 3.5 K/mm3 (1.3-6.7); Neutrophils Percent Auto 47.2 % (45.5-73.1); Platelet Count Result 138 k/mm3 (150-375); Red Blood Count 3.98 M/mm3 (4.2-5.4); Red Cell Distribution Width 13.3 % (11.5-14.5); White Blood Count 7.3 K/mm3 (4.5-10.0)
[2023-12-10 01:39] LABS: Alanine Aminotransferase 23 U/L (6-35); Albumin Level 3.6 g/dL (3.5-5.1); Alkaline Phosphatase 62 U/L (38-126); Anion Gap 5 mmol/L (8-16); Aspartate Amino Transferase 29 U/L (14-36); Blood Urea Nitrogen 21 mg/dL (7-17); Calcium 9.6 mg/dL (8.4-10.2); Carbon Dioxide 28 mmol/L (22-30); Chloride 107 mmol/L (98-107); Estimated CRCL calculation 38 ml/min; Estimated Glomerular Filt Rate 60; Glucose 106 mg/dL (65-110); Potassium 3.2 mmol/L (3.4-5.0); Sodium 140 mmol/L (137-145)
[2023-12-10] MEDS: BISACODYL 10 MG SUPPOSITORY RECTAL (02:39)
[2023-12-10] MEDS: POTASSIUM PHOS/SODIUM PHOS 250 MG TABLET PO (02:39)
[2023-12-10] MEDS: MAGNESIUM CITRATE 300 ML BTL 150 ML PO (02:40)
[2023-12-10 02:57] VITALS: BP 142/85; PULSE 66; RESP 15; TEMP 36.8; O2SAT 100
[2023-12-10 03:22] LABS: Appearance Urine Cloudy (Clear); Bacteria Urine 1+ /hpf; Bilirubin Urine Negative (Negative); Blood Urine Negative (Negative); Color Urine Yellow (Yellow); Glucose Urine UA Negative (Negative); Ketones Urine Trace mg/dL (Negative); Leukocyte Esterase Ur 2+ LEU/UL (Negative); Need Manual Microscopic Reviewed; Nitrate Urine Negative (Negative); Non Pathogenic Casts 0-2; Protein Urine 1+ mg/dL (Negative); RBC Urine 21-50 /hpf (0-2); Specific Grav Ur 1.023 (1.001-1.035); Squamous Epithelial Cell Urine None seen /hpf (Few); WBC Urine 51-100 /hpf
[2023-12-10 03:23] LABS: Add Urine Microscopic? YES
--- NOTE | 2023-12-10 05:13 | PC.NURSE ---
Pt did have large bowel movement after admin of suppository.
== END 2023-12-10 05:23 ==
PROVIDERS: Emergency Provider Student in an Organized Health Care Education/Training Program; PCP Student in an Organized Health Care Education/Training Program
DX: E87.6 Hypokalemia (principal); K59.00 Constipation, unspecified; N39.0 Urinary tract infection, site not specified; G30.9 Alzheimer's disease, unspecified; F02.80 Dementia in other diseases classified elsewhere, unspecified severity, without behavioral disturbance, psychotic disturbance, mood disturbance, and anxiety; F41.9 Anxiety disorder, unspecified; F32.A Depression, unspecified; I10 Essential (primary) hypertension; E78.5 Hyperlipidemia, unspecified
CPT/HCPCS: 36415; 71046; 74018; 80053; 81001; 85025; 87086; 93005; 96365; 99284; A9270; J0696